=== PATIENT | male | born 1935 | race Caucasian/White ===

== ENCOUNTER 2016-11-11 18:17 | Inpatient (IN) | payer OTHER ==
[~2016-11-11] VITALS: Ht 172.7 cm; Wt 69.9 kg
[~2016-11-11 18:17] MED LIST: BACITRACIN28.4 GM TOP; ELIQUIS2.5 M1 PO; FINASTERIDE5 M1 PO; FUROSEMIDE20 M1 PO; GLIMEPIRIDE4 M1 PO; HYDRALAZINE HCL25 M1 PO; IRON325 M3 PO; METOPROLOL TART25 M1 PO; PRAVASTATIN SOD40 M2 PO; RESTASIS1 EACH OPH; SENNA8.6 M3 PO; SODIUM BICARBO650 M1 PO; SPS 15 GM/15 GM/60 M PO; TRAMADOL HCL50 M1 PO; TRAVATAN Z5 ML OPH; TYLENOL325 M1 PO
--- NOTE | 2016-11-11 18:29 | NUR ---
PT WAS REFERED TO ED BY DR FLORES SECONDARY TO ANEMIA AND POSSIBLE BLOOD TRANSFUSION. HX OF THE SAME IN THE PAST.
--- NOTE | 2016-11-11 18:45 | ED GENERAL ADULT ---
History of Present Illness General Chief Complaint: General Adult Stated Complaint: SIB DR FLORES FOR BLOOD TRANSFUSION Source: patient, family, old records Exam Limitations: no limitations Vital Signs & Intake/Output Vital Signs & Intake/Output Vital Signs Date Time Temp Pulse Resp B/P Pulse O2 O2 Flow FiO2 Ox Delivery Rate 11/11 2209 98.2 81 22 180/83 98 11/11 2053 98.0 78 22 180/83 98 Room Air 11/11 1830 97.6 76 18 187/73 97 Room Air Allergies Coded Allergies: aspirin ("I HAVE TOO MUCH ACID IN ME" 08/26/16) Triage Note: PT WAS REFERED TO ED BY DR FLORES SECONDARY TO ANEMIA AND POSSIBLE BLOOD TRANSFUSION. HX OF THE SAME IN THE PAST. Triage Nurses Notes Reviewed? yes HPI: Patient is an 81-year-old male sent in by his primary care doctor for evaluation of low blood counts. Patient was seen by his primary doctor today, had outpatient blood work which showed low blood counts. Patient reports that he had been on Coumadin and then Eliquis but was having frequent nosebleeds, has been off anticoagulants for approximately 3 weeks. Patient takes 81 mg of aspirin daily. Has not had an endoscopy or colonoscopy for several years Patient's last nosebleed was one week ago. Black stools for the past 3 weeks. Today patient has been having intermittent lightheadedness and shortness of breath. Patient denies abdominal pain, chest pain, bright red blood per rectum, any other unusual bleeding. (LESLEY SOLIS) Reconcile Medications Aspirin (Ecotrin*) 81 MG TABLET. 1 TAB PO DAILY HEART HEALTH (Reported) Cyclosporine (Restasis) 0.05 % DROPERETTE 1 GTT OPH BID EYE (Reported) Ferrous Sulfate (IRON) 325 MG (65 MG IRON) TABLET 1 TAB PO BID Anemia Finasteride 5 MG TABLET 1 TAB PO DAILY PROSTATE (Reported) Furosemide 20 MG TABLET 1 TAB PO DAILY edema (Reported) Glimepiride 4 MG TABLET 0.5 TAB PO DAILY DIABETES (Reported) Hydralazine HCl 25 MG TABLET 1 TAB PO TID HEART (Reported) Metoprolol Tartrate 25 MG TABLET 1 TAB PO BID HEART (Reported) Pravastatin Sodium 40 MG TABLET 1 TAB PO QPM CHOLESTEROL (Reported) Sennosides (Senna) 8.6 MG TABLET 2 TAB PO DAILY PRN Constipation Sodium Bicarbonate 650 MG TABLET 1 TAB PO BID SUPPLEMENT (Reported) Sodium Polystyrene Sulfon/Sorb (Sps 15 Gm/60 Ml Suspension) 15 GRAM-20 GRAM/60 ML ORAL.SUSP 60 ML PO MoTh Hyperkalemia Please take this medication twice a week. Once on Friday and Once on . Tramadol HCl 50 MG TABLET 1 TAB PO BID PAIN (Reported) Travoprost (Travatan Z) 0.004 % DROPS 1 GTT OPH QPM EYE (Reported) (ELISEO PRIETO,SIERRA) Past History Travel History Traveled to [place] past 21 day No Medical History Any Pertinent Medical History? 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 No (LESLEY SOLIS) Review of Systems Review of Systems Constitutional: Reports: weakness. Denies: chills, fever. EENTM: Reports: no symptoms. Respiratory: Reports: short of breath. Denies: cough. Cardiovascular: Denies: chest pain, syncope. GI: Reports: melena. Denies: abdominal pain. Genitourinary: Reports: no symptoms. Musculoskeletal: Reports: no symptoms. Skin: Reports: no symptoms. Neurological/Psychological: Reports: no symptoms. Hematologic/Endocrine: Reports: see HPI. Immunologic/Allergic: Reports: no symptoms. (LESLEY SOLIS) Physical Exam Physical Exam General Appearance: well developed/nourished, alert, awake Head: atraumatic, normal appearance Eyes: Bilateral: normal appearance. Ears, Nose, Throat: hearing grossly normal Neck: normal inspection, supple, full range of motion Respiratory: normal breath sounds, chest non-tender, no respiratory distress, lungs clear Cardiovascular: regular rate and rhythm, systolic murmur 4 out of 6 Gastrointestinal: normal bowel sounds, soft, non-tender Rectal: dark brown stool, Hemoccult-positive Back: normal inspection, normal range of motion Extremities: normal inspection, normal capillary refill, normal range of motion, no edema Neurologic/Psych: awake, alert, oriented x 3 Skin: pale, intact Lymphatic: no anterior cervical francesca Core Measures ACS in differential dx? Yes ASA ordered for poss ACS? No-d/t bleeding/risk of CVA/TIA Diagnosis: No Severe Sepsis Present: No Septic Shock Present: No (PEE GARRIDO,LESLEY) Progress Differential Diagnoses I considered the following diagnoses in my evaluation of the patient: Symptomatic anemia, GI bleed, anemia secondary to epistaxis, malignancy, electrolyte abnormality Plan of Care: Orders Procedure Date/time Status Nothing by Mouth 11/12 B Active PROTHROMBIN TIME 11/12 06 Active CBC WITHOUT DIFFERENTIAL 11/12 06 Active Code Status 11/11 220 Active Pathway - chart 11/11 2205 Active Code Status 11/11 2205 Complete BLOOD PRODUCT PICKUP 11/11 2100 Active Patient Data 11/11 2058 Active Admit to inpatient 11/11 2057 Active Vital Signs 11/11 205 Active Code Status 11/11 205 Complete URINALYSIS 11/11 204 Complete Intake & Output 11/11 2043 Active MISTAKE 11/11 1922 Active Telemetry/Supervisor [employer] 11/11 1922 Active LEUKOCYTE POOR (PACKED CELLS) 11/11 1908 Active PROTHROMBIN TIME 11/11 1859 Complete Add-on Test (ER Only) 11/11 1851 Active EKG 11/11 1851 Active TROPONIN LEVEL 11/11 1841 Complete COMPREHENSIVE METABOLIC PANEL 11/11 1830 Complete CBC WITHOUT DIFFERENTIAL 11/11 1830 Complete TYPE & SCREEN (NOT X-MATCH) 11/11 1830 Active Vital Signs 11/11 UNK Active Hemoccult 11/11 UNK Active FingerStick- Glucose 11/11 UNK Active Current Medications Sig/Magaly Start time Last Medication Dose Stop Time Status Admin Latanoprost 1 GTT AT BEDTIME 11/12 2200 UNVr (Xalatan) Pravastatin Sodium 40 MG 1700 11/12 1700 UNVr (Pravachol) Ferrous Sulfate 325 MG BID 11/12 1000 UNVr (Feosol) Finasteride 5 MG DAILY 11/12 1000 UNVr (Proscar) Hydralazine HCl 25 MG TID 11/12 1000 UNVr (Apresoline) Metoprolol Tartrate 25 MG BID 11/12 1000 UNVr (Lopressor) Pantoprazole Sodium 40 MG DAILY 11/12 1000 UNVr (Protonix) Tramadol HCl 50 MG BID 11/12 1000 UNVr (Ultram) Insulin Human Regular 0 Q6 11/11 235 UNVr (Novolin R Inj (Npo Patient)) Insulin Human Regular 0 Q6 11/11 235 UNVr (Novolin R Inj (Npo Patient)) Acetaminophen 650 MG Q6P PRN 11/11 2214 UNVr (Tylenol) Sodium Chloride 1,000 ML .[id number] 11/11 2214 UNVr (Normal Saline 0.9%) Laboratory Tests 11/11/162049: Urine Color YEL, Urine Clarity CLEAR, Urine pH 6.5, Ur Specific [place] 1.015, Urine Protein 30 H, Urine Ketones NEG, Urine Nitrite NEG, Urine Bilirubin NEG, Urine Urobilinogen 0.2, Ur Leukocyte Esterase NEG, Ur Microscopic SEDIMENT EXAMINED, Urine RBC RARE, Urine WBC RARE, Urine Hemoglobin TRACE-INTACT H, Urine Glucose NEG 11/11/161951: PT 11.8, INR 1.13 11/11/16 1841: Anion Gap 13, Estimated GFR 16 L, BUN/Creatinine Ratio 16.8, Glucose 150 H, Calcium 9.6, Total Bilirubin 0.5, AST 28, ALT 37, Alkaline Phosphatase 77, Troponin I 0.10, Total Protein 6.5, Albumin 3.8, Globulin 2.7, Albumin/Globulin Ratio 1.4, CBC w Diff NO MAN DIFF REQ, RBC 2.39 L, MCV 83.2, MCH 26.7 L, RDW 24.7 H, MPV 7.3 L, Gran % 73.2, Lymphocytes % 15.9 L, Monocytes % 8.9, Eosinophils % 1.5, Basophils % 0.5, Absolute Granulocytes 4.4, Absolute Lymphocytes 0.9 L, Absolute Monocytes 0.5, Absolute Eosinophils 0.1, Absolute Basophils 0, PUBS MCHC 32.1 L Patient provided written consent for blood transfusion. 11/11/2016 7:32:37 PM: Discussed with Dr. Layne: Can give a dose of Protonix, make patient nothing by mouth after midnight for likely upper endoscopy tomorrow. Results of labs discussed with patient. Patient resting comfortably on reevaluation. Discussed with Dr. Conner: will admit patient. (LESLEY SOLIS) Initial ED EKG: normal sinus rhythm 80 beats per minute with first-degree AV block, right bundle branch block, no acute ST/T-wave changes compared to previous EKG Prior EKG: unchanged (LESLEY SOLIS) Departure Departure Disposition: STILL A PATIENT Condition: Stable Clinical Impression Primary Impression: Symptomatic anemia Secondary Impressions: [id number] kidney injury, Hyperkalemia Referrals: CECIL FLORES MD (PCP/Family) Departure Forms: Customer Survey General Discharge Information Admission Note Spoke With: LAZARO PRIETO,ANTELMO Documentation of Exam: Documentation of any treatments & extenuating circumstances including Concerns Regarding Discharge (functional status, medication knowledge or non-compliance, living conditions, etc.) that warrant an admission rather than observation: Blood transfusion, GI consultation, serial labs, consider nephrology consultation, endoscopy (LESLEY SOLIS) PA/[employer] Co-Sign Statement Statement: ED Attending supervision documentation- [X] I saw and evaluated the patient. I have also reviewed all the pertinent lab results and diagnostic results. I agree with the findings and the plan of care as documented in the PA's/[employer]'s documentation. [X] I have reviewed the ED Record and agree with the PA's/[employer]'s documentation. [] Additions or exceptions (if any) to the PAs/[employer]'s note and plan are summarized below: [] (ELISEO PRIETO,SIERRA) Critical Care Note Critical Care Note Critical Care Time: 30-74 min (LESLEY SOLIS)
[2016-11-11 18:52] LABS: ABSOLUTE BASOPHIL COUNT 0 /CUMM (0.0-0.2); ABSOLUTE EOSINOPHIL COUNT 0.1 /CUMM (0.0-0.7); ABSOLUTE GRANULOCYTE CT 4.4 /CUMM (1.4-6.5); ABSOLUTE LYMPH COUNT 0.9 /CUMM (1.2-3.4); ABSOLUTE MONOCYTE COUNT 0.5 /CUMM (0.10-0.60); WHITE BLOOD CELL COUNT 5.9 /CUMM (4.8-10.8)
[2016-11-11 18:59] LABS: BASOPHIL % 0.5 % (0.0-2.0); EOSINOPHIL % 1.5 % (0-5); GRANULOCYTE % 73.2 % (42.2-75.2); MEAN CORPUSCULAR HGB 26.7 PG (27.0-31.0); MEAN CORPUSCULAR HGB CONC 32.1 G/DL (33.0-37.0); MEAN CORPUSCULAR VOLUME 83.2 FL (80.0-94.0); MEAN PLATELET VOLUME 7.3 FL (7.4-10.4); PLATELET COUNT 286 /CUMM (130-400); RBC DISTRIBUTION WIDTH 24.7 % (11.5-14.5); RED BLOOD CELL CT 2.39 /CUMM (4.70-6.10)
[2016-11-11 19:05] LABS: HEMATOCRIT 19.8 % (42-52)
--- NOTE | 2016-11-11 19:11 | NUR ---
CRITICAL TEST RESULTS [id number] SHIRA GRANT 81 M TESTS AND RESULTS: h/h 6.4/19.8 Results received and read back by: DANICA RIGGS Results received date and time: 11/11/161911 The following provider was notified of the results, and read the results back: ravinder cesar Notified date and time: 11/11/16 at 1912
--- NOTE | 2016-11-11 20:07 | NUR ---
DIFF STICK, PT IS HEME + FROM BELOW REPORTS TO THIS RN THAT THE LAST TIME HE WAS HERE HIS k+ WAS HIGH, AND HE NEEDED ALL THESE INTERVENTIONS.
[2016-11-11 20:12] LABS: PT 11.8 SEC (9.4-12.5)
--- NOTE | 2016-11-11 20:42 | NUR ---
IV ESTABLISHED, D 50 OBTAINED FROM PHARMACY, UP TO VOID STEADY ON FEET ONCE STANDING. IVF HUNG., WILL VITAL THEN ORDER BLOOD.
--- NOTE | 2016-11-11 20:45 | NUR ---
NO OVERT BLEEDING NOTED NO DIZZYNESS WITH STANDING CONSENT OBTAINED. VSS. PT WANTS TO KEEP ON SHOES SO WHEN NEEDING TO VOID CAN STAND
--- NOTE | 2016-11-11 22:02 | NUR ---
HOUSESTAFF AT BEDSIDE.
[2016-11-11] MEDS ORDERED: ASPIRIN EC81 M1 PO (22:22)
[2016-11-11 22:55] VITALS: BP 200/90
--- NOTE | 2016-11-11 23:31 | History & Physical ---
ALEXANDRO PRIETO,[facility] 11/11/16 2329: General Information and HPI MD Statement: I have seen and personally examined SHIRA GRANT and documented this H&P. The patient is a 81 year old M who presented with a patient stated chief complaint of asymptomatic anemia. 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 Patient reports a history of epistaxis (evaluated by ENT) with the last episode of epistaxis being about 1-1/2 weeks ago. Patient states that prior to his low H&H values obtained yesterday by his PCP, he has noticed that in the past few days, he has been experiencing shortness of breath, some lightheadedness/mild dizziness, and also a three-week history of what he describes as dark stools. He does deny any chest pain, palpitation, sycnope, worsening orthopnea,ematemesis,hematuria, or abdominal pain. Patient reports having had multiple age-appropriate screening colonoscopies which she states was unremarkable and due to his age, no longer deemed to be necessary. Of note, patient has stopped taking apixaban or warfarin in the setting of episodes of epistaxis with low hemoglobin and hematocrit requiring transfusions. Patient reports that he is currently on aspirin therapy. Allergies/Medications Allergies: Coded Allergies: aspirin ("I HAVE TOO MUCH ACID IN ME" 08/26/16) Home Med list Aspirin (Ecotrin*) 81 MG TABLET.DR 1 TAB PO DAILY HEART HEALTH (Reported) Cyclosporine (Restasis) 0.05 % DROPERETTE 1 GTT OPH BID EYE (Reported) Ferrous Sulfate (IRON) 325 MG (65 MG IRON) TABLET 1 TAB PO BID Anemia Finasteride 5 MG TABLET 1 TAB PO DAILY PROSTATE (Reported) Furosemide 20 MG TABLET 1 TAB PO DAILY edema (Reported) Glimepiride 4 MG TABLET 0.5 TAB PO DAILY DIABETES (Reported) Hydralazine HCl 25 MG TABLET 1 TAB PO TID HEART (Reported) Metoprolol Tartrate 25 MG TABLET 1 TAB PO BID HEART (Reported) Pravastatin Sodium 40 MG TABLET 1 TAB PO QPM CHOLESTEROL (Reported) Sennosides (Senna) 8.6 MG TABLET 2 TAB PO DAILY PRN Constipation Sodium Bicarbonate 650 MG TABLET 1 TAB PO BID SUPPLEMENT (Reported) Sodium Polystyrene Sulfon/Sorb (Sps 15 Gm/60 Ml Suspension) 15 GRAM-20 GRAM/60 ML ORAL.SUSP 60 ML PO MoTh Hyperkalemia Please take this medication twice a week. Once on Friday and Once on . 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 Home Who Do You Live With? self Services at Home: None Primary Language: Khmer Smoking Status: Never Smoked Functional Ability ADLs Independent: dressing, eating, toileting, bathing. Ambulation: cane IADLs Independent: shopping, housework, finances, food prep, telephone. Needs Assist: transportation, medication admin. Review of Systems Review of Systems Constitutional: Denies: chills, diaphoresis, unexplained weight loss. EENTM: Denies: blurred vision, double vision. Cardiovascular: Denies: palpitations, syncope. Respiratory: Reports: short of breath. Denies: hemoptysis, orthopnea, wheezing. GI: Reports: melena. Denies: abdominal pain, vomiting. Genitourinary: Denies: dysuria, frequency, hematuria. Musculoskeletal: Denies: joint pain, joint swelling. Skin: Denies: erythema, jaundice. Neurological/Psychological: Denies: confusion, depressed, dementia. Hematologic/Endocrine: Reports: bleeding. Immunologic/Allergic: Reports: no symptoms. Exam & Diagnostic Data Last 24 Hrs of Vital Signs/I&O Vital Signs Date Time Temp Pulse Resp B/P Pulse O2 O2 Flow FiO2 Ox Delivery Rate 11/12 0004 200/90 11/12 0003 200/90 11/11 2255 98.0 86 20 200/90 97 Room Air 11/11 2210 98.2 81 22 180/83 98 11/11 2054 98.0 78 22 180/83 98 Room Air 11/11 1830 97.6 76 18 187/73 97 Room Air Intake & Output 11/12 0800 11/12 0000 11/11 1600 Intake Total Output Total 250 300 Balance -250 -300 Output, Urine 250 300 Patient 69.853 kg Weight Physical Exam General Appearance Alert, Oriented X3, Cooperative Skin No Breakdown HEENT Atraumatic, PERRLA, EOMI, dry mucos membrane Neck Supple, No JVD Lymphatic Cervical nl Cardiovascular Regular Rate, Normal S1, Normal S2 Lungs Clear to Auscultation, Normal Air Movement Abdomen Normal Bowel Sounds, Soft, No Tenderness Neurological Normal Speech, Normal Tone, Sensation Intact Extremities No Tenderness/Swelling, pitting +2 Vascular Normal Pulses Assessment/Plan Assessment: This is a 80-year-old male with a recent history of epistaxis, past medical history of CAD status post CABG, CKD stage III, and use of aspirin therapy is presenting with symptomatic anemia. Patient is also found to hyperkalemia. Assessment and plan #Symptomatic acute on chronic anemia Patient presenting with symptoms of shortness of breath, lightheadedness and dizziness, and possibly black tarry stool and with hemoglobin levels value of 6.1 and hematocrit of 19.8. Possible etiology of patient's anemia includes recurrent history of epistaxis, However, the patient hasn't had an episode since about 1 and 1/2 weeks ago. Patient complains of blood tarry stool in the setting of aspirin use is concerning for GI etiology such as an ulcer. Patient history of sick daily also be superimposing and worsening his anemia. Plan * Will keep patient nothing by mouth * Will continue with 2 units of PRBC * Will trend CBC at 6am s/p transfusion * Will monitor for any acute bleeding * Will await GI consult in the morning #Hyperkalemia Most likely secondary to patient's chronic kidney disease. Patient is not on any medication that creases risk of hyperkalemia. No acute EKG changes noted. Plan * Patient already status post Kayexalate * Will trend BEP 6 am for K+ levels #Acute on chronic kidney injury Patient creatinine baseline averages around 3.3. BUN/creatinine ratio does not depict a prerenal etiology. Plan * Gentle hydration NS 75 mls per hour * Will trend kidney function * Will avoid nephrotoxic agents #History of CAD * Will obtain serial troponins and EKG to rule out ACS in the setting of symptomatic anemia * Will continue home meds with the exception of aspirin, will defer to cardiology and GI on when to restart #History of diabetes * NovoLog sliding scale and Levemir As Ranked By This Provider Problem List: 1. [id number] kidney injury 2. Hyperkalemia 3. Symptomatic anemia Core Measures/Miscellaneous Acute Coronary Syndrome ACS Diagnosis: No Cerebrovascular Accident CVA/TIA Diagnosis: No Congestive Heart Failure CHF Diagnosis: No Venous Thromboembolism VTE Risk Factors: Acute medical illness, Age > 40 VTE Prophylaxis Ordered Inpt: Mechanical (ALPS/TEDS) No Mech VTE prophylaxis d/t: No contraindications No VTE Pharm Prophylaxis d/t: Medical contraindication (LOW H&H and hx of bleeding) VTE Diagnosis: No VTE Type: NONE VTE Confirmed by (Test): NONE Severe Sepsis Severe Sepsis Present: No Septic Shock Septic Shock Present: No Miscellaneous Documentation Attending Case Discussed With: CARL WILLIS [facility] Primary Care Physician: CECIL FLORES MD Patient sees these Specialists research associate professor Level of Patient Care: General Medicine OMI PRIETONILDA 11/12/16 0525: Resident Review Statement Resident Statement: examined this patient, discussed with cad intern, agreed with cad intern, reviewed EMR data (avail), reviewed images, amended to note Other Findings: This is 81-year-old male with past medical history of paroxysmal A. fib status post pacemaker placement currently off anticoagulation for past 3 months due to anemia, see Blanca stage III - IV secondary to hypertensive nephrosclerosis, CAD status post three-vessel CABG, hypertension, type 2 diabetes was sent in by his primary care physician after routine blood workup found to have low H&H. Patient has been having frequent nosebleeds and was evaluated by ENT. His nose bleed stopped 3 weeks prior to admission after his anticoagulation stopped and started on aspirin. For past few days patient has been having intermittent lightheadedness and shortness of breath and he also reports having dark stools for past few days. He denied any chest pain, dizziness, abdominal pain, nausea, vomiting, and bright red blood per rectum. His vitals on admission were T 98, HR 76, RR 18, BP 187/73, O2 sat 97% on room air. On physical exam patient is alert oriented 3 in no acute distress, HEENT PERRLA EOMI, neck supple, heart S1-S2 normal with systolic murmur, lungs clear on auscultation, abdomen soft nontender nondistended with preserved bowel sounds, no peripheral edema, no focal gross neuro deficit. Labs revealed microcytic anemia with H&H 6.4/19.8 (baseline H&H 8.8/27 in 2015), BUN/creatinine 62/37 (baseline 34/3.2 in 09/2016), troponin 0.10--> 0.12, INR 1.13 UA noted having trace hemoglobin EKG revealed normal sinus rhythm at rate of 80 with previously noted RBBB and first-degree AV block, QTC 480 Assessment: This is 81 years old male with past medical history of paroxysmal A. fib status post pacemaker placement currently not on anticoagulation due to anemia, see Blanca stage III, type 2 diabetes, CAD status post three-vessel CABG, recent history of nosebleed presented from home with chief complaint of lightheadedness and shortness of breath found to have significant anemia on routine workup. Patient also reported 3 weeks history of on and off dark BM and recently started on aspirin. 1. Anemia secondary to GI bleed Also there is a component of anemia secondary to chronic kidney disease - Admit to general medicine floor - Keep nothing by mouth for possible EGD - Hold aspirin and anticoagulation - Start IV PPI - GI consult in a.m. 2. CAD - Continue Metoprolol 25 twice a day - Held aspirin due to concern of upper GI bleed - Cardiology consult in a.m. for evaluation of need for antiplatelet or anticoagulation medication considering patient's history of CAD and paroxysmal A. fib. - Continue statin 3. Hypertension - Continue metoprolol and hydralazine 4. Type 2 diabetes - Continue Novolin nothing by mouth sliding scale - Hold oral hypoglycemic agent 5. Stage IIIc CK D Avoid nephrotoxic agent Gentle IV hydration Monitor renal function 6. Hyperkalemia in setting of acute on chronic kidney disease - Patient received calcium gluconate and insulin with dextrose in ER - Repeat potassium in a.m. - No EKG changes noted - If progression remains high consider dose of Kayexalate 7. DVT prophylaxis Mechanical 8. DNR/DNI LAZARO PRIETO, [facility] 11/12/16 0640: Attending MD Review Statement Attending Statement Attending MD Statement: examined this patient, discuss w/resident/PA/TIP LENGTH CHECKER, agreed w/resident/PA/TIP LENGTH CHECKER Attending Assessment/Plan: 81 yo M with h/o CAD s/p CABG, CKD stage 3-4, P Afib and SSS s/p PPM previously on AC that was discontinued due to recurrent nosebleeds and he was placed on aspirin about 3 weeks ago, is sent by PCP for evaluation of anemia. Patient reports last episode of nosebleed on Nov 03. He has 3-week h/o dark/ black stooks, lightheadedness and exertional dyspnea. No CP or palpitations. Denies use of NSAIDs other than aspirin. Last Colonoscopy was many yrs ago and unremarkable per patient. VSS, except for hypertension. Labs: H/H 8.8/27 (Sep 2016) --> 6.4/19.8 (today), K 5.9, bicarb 20, BUN 62, creat 3.7 (baseline 3.1-3.2), trop 0.10 --> 0.12, UA neg. EKG: SR, RBBB (old). Rectal exam: dark brown stool heme positive. 1. Acute blood loss and symptomatic anemia likely in the setting of aspirin use. NPO, transfuse to keep Hb > 8.0, gentle hydration, hold off aspirin and NSAIDs, GI consult, IV PPI, EGD in AM. Check iron studies, TSH, free T4, B12 and folic acid. 2. Positive troponin likely demand ischemia. Serial EKG and troponin, Echo and cardio consult. 3. Orthostatic hypotension. IV hydration, recheck orthostats in AM. 4. HTN, CAD. Ct. Metoprolol, hydralazine. 5. Hyperkalemia in the setting of CKD. DVT ppx Alps. DNR/I.
[2016-11-12] VITALS (7 sets, daily range): BP systolic 150–180; BP diastolic 62–84
--- NOTE | 2016-11-12 05:06 | NUR ---
PT RECIEVED TWO UNITS OF BLOOD FINISHED AT 0430. BP 180/80 MD AWARE. +TROP, STAT TRANSFER TO TELE. AWAITING BED PLACEMENT.
--- NOTE | 2016-11-12 06:15 | NUR ---
PT TRANSFERED TO TELE AT 0605. REPORT GIVEN, BELONGINGS AND MEDS WENT WITH PT.
--- NOTE | 2016-11-12 06:39 | Admission Certification ---
Admission Certification Certification Statement - As attending physician, I certify that at the time of - admission, based on clinical presentation, severity of - symptoms, need for further diagnostic testing and - therapeutic interventions, and risk of adverse outcomes - without in-hospital treatment, in my clinical assessment, - this patient requires an acute hospital stay for a minimum - of two nights or longer. I have also considered psychsocial - factors such as support system, advanced age, financial - issues, cognitive issues, and failed out-patient treatments, - past re-admission history, safety of patient, and lack of - compliance as applicable. Specific rationale supporting this admission is: Acute blood loss anemia, symptomatic anemia. Orthostatic hypotension.
--- NOTE | 2016-11-12 07:29 | PN- Housestaff ---
SELVIN PRIETO,[facility] 11/12/16 0729: Subjective Follow-up For: Symptomatic acute on chronic anemia Hyperkalemia Diabetes Subjective: seen and examined this morning. He was lying comfortably in bed in no acute distress. He is to go for endoscopy today, currently nothing by mouth for the procedure. Afebrile, the vitals remained within normal limits. No other complaints Review of Systems Constitutional: Reports: see HPI. Objective Last 24 Hrs of Vital Signs/I&O Vital Signs Date Time Temp Pulse Resp B/P Pulse O2 O2 Flow FiO2 Ox Delivery Rate 11/12 1326 160/70 11/12 0944 166/74 11/12 0800 98.2 64 20 170/80 93 Room Air 11/12 0642 64 174/84 11/12 0430 98.4 67 20 180/80 11/12 0205 98.3 63 20 160/78 11/12 0150 97.8 62 20 150/74 11/12 0105 97.7 62 20 158/72 11/12 0004 200/90 11/12 0003 200/90 11/11 2255 98.0 86 20 200/90 97 Room Air 11/11 2210 98.2 81 22 180/83 98 11/11 2054 98.0 78 22 180/83 98 Room Air 11/11 1830 97.6 76 18 187/73 97 Room Air Intake & Output 11/12 1600 11/12 0800 11/12 0000 Intake Total 1200 700 Output Total 700 250 300 Balance 500 450 -300 Intake, Blood 600 Product Intake, IV 800 100 Intake, Oral 400 Number 2 Bowel Movements Output, Urine 700 250 300 Patient 69.853 kg Weight Physical Exam General Appearance: Alert, Oriented X3, Cooperative, No Acute Distress Cardiovascular: Regular Rate, Normal S1, Normal S2, No Murmurs Lungs: Clear to Auscultation, Normal Air Movement Abdomen: Normal Bowel Sounds, Soft, No Tenderness Extremities: No Clubbing, No Cyanosis, No Edema Current Medications: Current Medications Sig/Magaly Start time Last Medication Dose Route Stop Time Status Admin Acetaminophen 650 MG .STK-MED ONE 11/12 0000 DC PO 11/12 0001 Acetaminophen 650 MG Q6P PRN 11/11 2215 AC 11/12 PO 0003 Calcium Gluconate 0 .STK-MED ONE 11/11 2015 DC IV Calcium Gluconate 1 GM ONCE ONE 11/11 194 DC 11/11 Sodium Chloride 100 ML IV 11/11 2043 204 Chlorhexidine 1 GM .STK-MED ONE 11/12 1306 DC Gluconate TOP 11/12 1307 Dextrose 25 GM ONCE ONE 11/11 1945 DC 11/11 IV 11/11 1945 204 Ferrous Sulfate 325 MG BID 11/12 1000 AC 11/12 PO 0944 Finasteride 5 MG DAILY 11/12 1000 AC 11/12 PO 0944 Hydralazine HCl 25 MG Q8 11/12 0600 AC 11/12 PO 1326 Hydralazine HCl 25 MG ONCE ONE 11/11 2315 DC 11/12 PO 11/11 2316 0003 Insulin Aspart 0 TIDAC 11/12 1700 UNVr SC Insulin Human Regular 0 Q6 11/11 2359 DC 11/12 SC 0126 Insulin Human Regular 0 Q6 11/11 2359 CAN SC Insulin Human Regular 10 UNITS ONCE ONE 11/11 1945 DC 11/11 IV 11/11 1945 204 Latanoprost 1 GTT AT BEDTIME 11/12 2200 AC OPH Latanoprost 1 GTT AT BEDTIME 11/12 2200 CAN OPH Metoprolol Tartrate 25 MG BID 11/12 1000 AC 11/12 PO 0944 Metoprolol Tartrate 25 MG ONCE ONE 11/11 2315 DC 11/12 PO 11/11 2316 0004 Omeprazole 40 MG BID 11/12 2200 AC PO Pantoprazole Sodium 40 MG DAILY 11/12 1000 DC 11/12 IV 0945 Pantoprazole Sodium 0 .STK-MED ONE 11/11 2030 DC IV Pantoprazole Sodium 40 MG ONCE ONE 11/11 194 DC 11/11 IV 11/11 1945 204 Patient Medication 1 ED .STK-MED ONE 11/12 1356 DC Teaching ED 11/12 1357 Pravastatin Sodium 40 MG 1700 11/12 1700 AC PO Sodium Chloride 1,000 ML .[id number] 11/11 2215 DC 11/12 IV 0642 Sodium Chloride 1,000 ML ONCE ONE 11/11 1945 DC 11/11 IV 11/12 0344 2019 Sodium Polystyrene 60 ML ONCE ONE 11/12 0915 DC 11/12 Sulfonate PO 11/12 0916 0945 Tramadol HCl 50 MG BID 11/12 1000 AC 11/12 PO 0944 Last 24 Hrs of Lab/Dung Results Last 24 Hrs of Labs/Mics: Laboratory Tests 11/12/16 1310: Troponin I Pending 11/12/16 0600: Anion Gap 12, Estimated GFR 15 L, BUN/Creatinine Ratio 14.7, Troponin I 0.13 *H , PT Cancelled, INR Cancelled, CBC w Diff NO MAN DIFF REQ, RBC 3.12 L, MCV 83.7 , MCH 27.7, RDW 20.6 H, MPV 7.7, Gran % 67.8, Lymphocytes % 20.3 L, Monocytes % 8.4, Eosinophils % 3.1, Basophils % 0.4, Absolute Granulocytes 3.8, Absolute Lymphocytes 1.2, Absolute Monocytes 0.5, Absolute Eosinophils 0.2, Absolute Basophils 0, PUBS MCHC 33.2 11/12/16 0230: Troponin I 0.12 *H 11/11/162049: Urine Color YEL, Urine Clarity CLEAR, Urine pH 6.5, Ur Specific [place] 1.015, Urine Protein 30 H, Urine Ketones NEG, Urine Nitrite NEG, Urine Bilirubin NEG, Urine Urobilinogen 0.2, Ur Leukocyte Esterase NEG, Ur Microscopic SEDIMENT EXAMINED, Urine RBC RARE, Urine WBC RARE, Urine Hemoglobin TRACE-INTACT H, Urine Glucose NEG 11/11/16 1952: PT 11.8, INR 1.13 11/11/16 1841: Anion Gap 13, Estimated GFR 16 L, BUN/Creatinine Ratio 16.8, Glucose 150 H, Calcium 9.6, Total Bilirubin 0.5, AST 28, ALT 37, Alkaline Phosphatase 77, Troponin I 0.10, Total Protein 6.5, Albumin 3.8, Globulin 2.7, Albumin/Globulin Ratio 1.4, CBC w Diff NO MAN DIFF REQ, RBC 2.39 L, MCV 83.2, MCH 26.7 L, RDW 24.7 H, MPV 7.3 L, Gran % 73.2, Lymphocytes % 15.9 L, Monocytes % 8.9, Eosinophils % 1.5, Basophils % 0.5, Absolute Granulocytes 4.4, Absolute Lymphocytes 0.9 L, Absolute Monocytes 0.5, Absolute Eosinophils 0.1, Absolute Basophils 0, PUBS MCHC 32.1 L Assessment/Plan Assessment: This is 81 years old male with past medical history of paroxysmal A. fib status post pacemaker placement currently not on anticoagulation due to anemia, see Blanca stage III, type 2 diabetes, CAD status post three-vessel CABG, recent history of nosebleed presented from home with chief complaint of lightheadedness and shortness of breath found to have significant anemia on routine workup. Patient also reported 3 weeks history of on and off dark BM and recently started on aspirin. Upon presentation -His vitals on admission were T 98, HR 76, RR 18, BP 187/73, O2 sat 97% on room air. On physical exam patient is alert oriented 3 in no acute distress, HEENT PERRLA EOMI, neck supple, heart S1-S2 normal with systolic murmur, lungs clear on auscultation, abdomen soft nontender nondistended with preserved bowel sounds, no peripheral edema, no focal gross neuro deficit. Labs revealed microcytic anemia with H&H 6.4/19.8 (baseline H&H 8.8/27 in 2015), BUN/creatinine 62/37 (baseline 34/3.2 in 09/2016), troponin 0.10--> 0.12, INR 1.13 UA noted having trace hemoglobin EKG revealed normal sinus rhythm at rate of 80 with previously noted RBBB and first-degree AV block, QTC 480 He was admitted to telemetry floor and is currently being monitored for the following conditions: #Symptomatic acute on chronic anemia Patient presenting with symptoms of shortness of breath, lightheadedness and dizziness, and possibly black tarry stool and with hemoglobin levels value of 6.1 and hematocrit of 19.8. Possible etiology of patient's anemia includes recurrent history of epistaxis, However, the patient hasn't had an episode since about 1 and 1/2 weeks ago. Patient complains of blood tarry stool in the setting of aspirin use is concerning for GI etiology such as an ulcer. He received 2 units of packed red blood cells yesterday H&H posttransfusion 8.7 and 26.1. Patient currently nothing by mouth for endoscopy today, will monitor for any acute bleeding, GI on board for follow-up or conditions. We'll continue with GI prophylaxis with Protonix IV 40 mg daily. #Hyperkalemia Most likely secondary to patient's chronic kidney disease. Patient is not on any medication that creases risk of hyperkalemia. No acute EKG changes noted. Kayexalate was administered we'll monitor repeat labs for potassium levels #Acute on chronic kidney injury Patient creatinine baseline averages around 3.3. BUN/creatinine ratio does not depict a prerenal etiology. Currently hydrating with normal saline 75 ML's per hour, will monitor repeat labs and in the meanwhile avoid any nephrotoxic drugs. #History of CAD Likely demand ischemia, troponins 0.12 and 0.13, without any acute EKG changes, will Trend serial troponins and EKG to rule out ACS in the setting of symptomatic anemia. Aspirin on hold for now, will consult GI to be started. #History of diabetes. We'll start patient on insulin sliding scale with fingersticks TIDAC/hs along with Levemir, diabetic diet, HbA1c pending # DVT prophylaxis with Alps Patient is DNR/DNI. Problem List: 1. Hyperkalemia 2. Symptomatic anemia Pain Ratin Pain Location: none Pain Goal: Remain pain free Pain Plan: Tylenol 650 every 6 hours for mild pain Tomorrow's Labs & Rationales: CBC for posttransfusion H&H monitoring BEP for lites monitoring (potassium, creatinine) JOSE MIGUEL CARLISLE MD 11/12/16 1650: Attending MD Review Statement Attending Statement Attending MD Statement: examined this patient, discuss w/resident/PA/RIM ROLLER OPERATOR, agreed w/resident/PA/RIM ROLLER OPERATOR, reviewed EMR data (avail), discussed with nursing, amended to note Attending Assessment/Plan: The patient was seen and discussed with house staff and GI/Cardiology. Agree with the plan of care as outlined.
[2016-11-12 08:12] LABS: ABSOLUTE BASOPHIL COUNT 0 /CUMM (0.0-0.2); ABSOLUTE EOSINOPHIL COUNT 0.2 /CUMM (0.0-0.7); ABSOLUTE GRANULOCYTE CT 3.8 /CUMM (1.4-6.5); ABSOLUTE LYMPH COUNT 1.2 /CUMM (1.2-3.4); ABSOLUTE MONOCYTE COUNT 0.5 /CUMM (0.10-0.60); EOSINOPHIL % 3.1 % (0-5); MEAN PLATELET VOLUME 7.7 FL (7.4-10.4); WHITE BLOOD CELL COUNT 5.7 /CUMM (4.8-10.8)
[2016-11-12 08:28] LABS: BASOPHIL % 0.4 % (0.0-2.0); GRANULOCYTE % 67.8 % (42.2-75.2); MEAN CORPUSCULAR HGB 27.7 PG (27.0-31.0); MEAN CORPUSCULAR HGB CONC 33.2 G/DL (33.0-37.0); MEAN CORPUSCULAR VOLUME 83.7 FL (80.0-94.0); PLATELET COUNT 237 /CUMM (130-400); RBC DISTRIBUTION WIDTH 20.6 % (11.5-14.5)
[2016-11-12 08:31] LABS: HEMATOCRIT 26.1 % (42-52); RED BLOOD CELL CT 3.12 /CUMM (4.70-6.10)
--- NOTE | 2016-11-12 09:52 | NUR ---
OK TO GIVE AM MEDS WITH SIPS OF WATER PER AHAF A.
--- NOTE | 2016-11-12 11:48 | Cons- Gastroenterology ---
General Information and HPI Consulting Request Date of Consult: 11/12/16 Requested By: JOSE MIGUEL STOUT MD Reason for Consult: Notified this morning of a request to see 81-year-old male with numerous comorbidities for multifactorial anemia, questionable history of melena (brown, OB+ stool on admission), & history of epistaxis. Source of Information: patient, old records Exam Limitations: no limitations History of Present Illness: 81-year-old male with numerous comorbidities, ASHD/PPM/post CABG 2008/HTN/HLD/DM /CHF/CKD stage 3-4/DJD/hx PAF- off A/C therapy (Coumadin switched to Eliquis 2 months [facility], at which point he was put on ASA 81 mg daily), admitted 11/11/2016 with multifactorial anemia & questionable history of melena (brown, OB-negative stool in the ER), requiring transfusion, with sonya H/H 6.4/19.8, BUN/Cr 62/3.7, INR 1.13. The patient has had numerous episodes of epistaxis, most recently requiring cautery and packing over the past month. There was no overt hematemesis or BRBPR. The patient was not on NSAIDs, just Tramodol for DJD/post right THR 04/30/07. *The patient had a mild troponin bump 0.13, felt to be secondary to demand ischemia from anemia, and was cleared by Dr. Jamison, of cardiology, preoperatively. Positive family history of gastric CA (M- 76). Positive family history of liver cancer (F- 83, primary vs. met). 27/04: Combined upper endoscopy/colonoscopy to the cecum- duodenitis, mild chronic antral gastritis, H. pylori positive, moderate chronic fundic gastritis, H. pylori positive, without Ca, Z line at 40 cm, tiny hiatal hernia; moderate left sided diverticula, mild internal hemorrhoids, normal mucosa to the cecum. [ *I am not certain what H. pylori regimen the patient was treated with at that time, as the records have been purged]. The patient was sent to the [place] ER 11/11/2016 by his PMD, Dr. Smiley, arriving 6:17 p.m., for symptomatic anemia, at which point he was hypertensive, otherwise vital signs stable and afebrile. He was given IV Protonix, IV normal saline, calcium and insulin in the ER. The patient was not dizzy upon standing, although there were orthostatic changes ( albeit HTN). He did have some shortness of breath with exertion, otherwise there is no chest pain, LOC, or shortness of breath at rest. There was no gross hematuria or hemoptysis. The patient denies any history of bleeding disorders. The patient has required intermittent transfusions in the past. According to cardiology, in view of the recurrent anemia & epistaxis, the risk:benefit ratio no longer warranted anticoagulation therapy. The patient denies any GERD, odynophagia, dysphagia, nausea, vomiting, early satiety, abdominal pain, change in appetite, fevers, chills, jaundice, diarrhea, constipation, obstipation, or tenesmus. His weight is relatively stable. Baby aspirin was held on admission. The patient was not on outpatient PPI. The intermittent dark stools were for 3 weeks [facility]. *There is no true aspirin "allergy," despite what the records imply. 11/11/16: *Ferritin 13.8, B12 546, folate > 20 11/12/16: *peak troponin (to date) 0.13 11/12/16: EKG- NSR @ 62, 1st degree AVB, LAE, RBBB, post PPM. Allergies/Medications Allergies: Coded Allergies: aspirin ("I HAVE TOO MUCH ACID IN ME" 08/26/16) Home Med List: Aspirin (Ecotrin*) 81 MG TABLET.DR 1 TAB PO DAILY HEART HEALTH (Reported) Cyclosporine (Restasis) 0.05 % DROPERETTE 1 GTT OPH BID EYE (Reported) Ferrous Sulfate (IRON) 325 MG (65 MG IRON) TABLET 1 TAB PO BID Anemia Finasteride 5 MG TABLET 1 TAB PO DAILY PROSTATE (Reported) Furosemide 20 MG TABLET 1 TAB PO DAILY edema (Reported) Glimepiride 4 MG TABLET 0.5 TAB PO DAILY DIABETES (Reported) Hydralazine HCl 25 MG TABLET 1 TAB PO TID HEART (Reported) Metoprolol Tartrate 25 MG TABLET 1 TAB PO BID HEART (Reported) Pravastatin Sodium 40 MG TABLET 1 TAB PO QPM CHOLESTEROL (Reported) Sennosides (Senna) 8.6 MG TABLET 2 TAB PO DAILY PRN Constipation Sodium Bicarbonate 650 MG TABLET 1 TAB PO BID SUPPLEMENT (Reported) Sodium Polystyrene Sulfon/Sorb (Sps 15 Gm/60 Ml Suspension) 15 GRAM-20 GRAM/60 ML ORAL.SUSP 60 ML PO MoTh Hyperkalemia Please take this medication twice a week. Once on Friday and Once on . Tramadol HCl 50 MG TABLET 1 TAB PO BID PAIN (Reported) Travoprost (Travatan Z) 0.004 % DROPS 1 GTT OPH QPM EYE (Reported) Current Medications: Current Medications Sig/Magaly Start time Last Medication Dose Route Stop Time Status Admin Acetaminophen 650 MG .STK-MED ONE 11/12 0000 DC PO 11/12 0001 Acetaminophen 650 MG Q6P PRN 11/11 2215 AC 11/12 PO 0003 Calcium Gluconate 0 .STK-MED ONE 11/11 2016 DC IV Calcium Gluconate 1 GM ONCE ONE 11/11 1944 DC 11/11 Sodium Chloride 100 ML IV 11/11 Chlorhexidine 1 GM .STK-MED ONE 11/12 1306 DC Gluconate TOP 11/12 1307 Dextrose 25 GM ONCE ONE 11/11 1945 DC 11/11 IV 11/11 Ferrous Sulfate 325 MG BID 11/12 1000 AC 11/12 PO 0944 Finasteride 5 MG DAILY 11/12 1000 AC 11/12 PO 0944 Hydralazine HCl 25 MG Q8 11/12 0600 AC 11/12 PO 1326 Hydralazine HCl 25 MG ONCE ONE 11/11 2315 DC 11/12 PO 11/11 2316 0003 Insulin Human Regular 0 Q6 11/11 2359 DC 11/12 SC 0126 Insulin Human Regular 0 Q6 11/11 2359 CAN SC Insulin Human Regular 10 UNITS ONCE ONE 11/115 DC 11/11 IV 11/11 Latanoprost 1 GTT AT BEDTIME 11/120 AC OPH Latanoprost 1 GTT AT BEDTIME 11/12 2200 CAN OPH Metoprolol Tartrate 25 MG BID 11/12 1000 AC 11/12 PO 0944 Metoprolol Tartrate 25 MG ONCE ONE 11/11 2315 DC 11/12 PO 11/11 2316 0004 Omeprazole 40 MG BID 11/12 2200 AC PO Pantoprazole Sodium 40 MG DAILY 11/12 1000 DC 11/12 IV 0945 Pantoprazole Sodium 0 .STK-MED ONE 11/11 2030 DC IV Pantoprazole Sodium 40 MG ONCE ONE 11/11 1944 DC 11/11 IV 01/30 1946 2042 Patient Medication 1 ED .STK-MED ONE 11/12 1356 DC Teaching ED 11/12 1357 Pravastatin Sodium 40 MG 1700 11/12 1700 AC PO Sodium Chloride 1,000 ML .[id number] 11/11 2215 DC 11/12 IV 0642 Sodium Chloride 1,000 ML ONCE ONE 11/11 1945 DC 11/11 IV 11/12 0344 2019 Sodium Polystyrene 60 ML ONCE ONE 11/12 0915 DC 11/12 Sulfonate PO 11/12 0916 0945 Tramadol HCl 50 MG BID 11/12 1000 AC 11/12 PO 0944 Past History Travel History Traveled to [place] past 21 day No Medical History Blood Transfusion Hx: Yes Neurological: NONE EENT: epistaxis Cardiovascular: CAD, CHF, hypertension, hyperlipidemia, R CHEST PACEMAKER, PAF Respiratory: NONE Gastrointestinal: diverticulosis coli, 05/28/07: + H. pylori on gastric bxs, txd (?regimen) Hepatic: NONE Renal: benign prost hyperplasia, DECREASED KIDNEY FUNCTION CKD- STAGE 3-4 Musculoskeletal: degen joint disease, osteoarthritis, FALL 5 YRS AGO Psychiatric: NONE Endocrine: diabetes Blood Disorders: NONE (multifactorial), anemia Cancer(s): NONE MEDICAL RECORDS CODER/Reproductive: NONE Surgical History Surgical History: none (2008), CABG, hip replacement (04/30/07: Right THR), R CHEST PACEMAKER Family History Relations & Conditions If Any: MOTHER, , Age 78; Cause: Gastric cancer. Gastric cancer FATHER (Liver Ca (? primary vs. met)). , Age 86; Cause: Cancer. Psychosocial History Where Do You Live? Home Who Do You Live With? self Services at Home: None Primary Language: Tamazight Smoking Status: Never Smoked ETOH Use: denies use Illicit Drug Use: denies illicit drug use Living Will? no Power of [employer] Runners/HCP? no Other Social History: Single. Lives alone. Patient's , Kaalni- 67 in 2008 from gastric Ca. No cigarettes, drugs, or EtOH. 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 Functions independently. Uses cane. 2 children- [employer] (1 dtr in [place], [place] & 1 son in [place]). Functional Ability ADLs Independent: dressing, eating, toileting, bathing. Ambulation: cane IADLs Independent: shopping, housework, finances, food prep, telephone. Needs Assist: transportation, medication admin. Employment History Employment: Retired (semi-retired) Profession/Employer: [employer] Review of Systems Review of Systems: Full 14 point review of systems otherwise noncontributory, and as above. Review of Systems Constitutional: Denies: chills, diaphoresis, fever, malaise, weakness, unexplained weight loss. EENTM: Reports: epistaxis (recently). Denies: blurred vision, double vision, visual changes, eye pain, eye drainage, eye tearing, icterus, ear discharge, ear pain, ear redness, hearing changes, nasal congestion, nasal pain, throat pain, throat swelling, mouth pain, tooth pain. Cardiovascular: Denies: chest pain, edema, orthopena, palpitations, peripheral edema, syncope. Respiratory: Reports: short of breath. Denies: cough, hemoptysis, orthopnea, sputum production, stridor, wheezing. GI: Reports: melena (brown, OB+ on admission). Denies: abdominal pain, bloating, constipation, diarrhea, distention, bowel incontinence, nausea, bloody stool, changes in stool, vomiting, steatorrhea. Genitourinary: Reports: hesitation (BPH), nocturia (BPH). Denies: discharge, dysuria, frequency, hematuria, pain, urgency. Musculoskeletal: Reports: joint pain (DJD). Denies: back pain, gout, joint swelling, muscle pain , muscle stiffness, neck pain. Skin: Denies: cysts, change in skin color, change in hair/nails, dryness, erythema, jaundice, lesions, lymphangitis, lumps, moles, rash. Neurological/Psychological: Denies: anxiety, ataxia, cognitive dysfunction, confusion, depressed, dementia, emotional problems, headache, numbness, paresthesia, pre-existing deficit, petit mal seizures, tingling, tremors, tonic-clonic seizures, unable to move lower ext , unable to move upper ext, weakness. Hematologic/Endocrine: Reports: bleeding (hx epistaxis & int dark stool). Denies: bruising, polyuria, polydipsia. Immunologic/Allergic: Denies: splenectomy, HIV/AIDS, lymphadenopathy. All Other Systems: Reviewed and Negative Exam & Diagnostic Data Vital Signs and I&O Vital Signs Date Time Temp Pulse Resp B/P Pulse O2 O2 Flow FiO2 Ox Delivery Rate 11/12 1326 160/70 11/12 0944 166/74 11/12 0800 98.2 64 20 170/80 93 Room Air 11/12 0642 64 174/84 11/12 0430 98.4 67 20 180/80 11/12 0205 98.3 63 20 160/78 11/12 0150 97.8 62 20 150/74 11/12 0105 97.7 62 20 158/72 11/12 0004 200/90 11/12 0003 200/90 11/11 2255 98.0 86 20 200/90 97 Room Air 11/11 2210 98.2 81 22 180/83 98 11/11 2054 98.0 78 22 180/83 98 Room Air 11/11 1830 97.6 76 18 187/73 97 Room Air Intake & Output 11/12 1600 11/12 0400 11/11 1600 11/11 0400 11/10 1600 11/10 0400 Intake Total 700 Output Total 550 Balance 700 -550 Intake, Blood 600 Product Intake, IV 100 Output, Urine 550 Patient 154 lb Weight Physical Exam: Well-developed, well-nourished, elderly male in no apparent distress. Sclera anicteric. Conjunctiva less pale after transfusion. Oropharynx clear. No oral thrush. No aphthous ulcers. There is no adenopathy, thyromegaly, JVD, or HJR. No peripheral stigmata of inflammatory bowel disease or chronic liver disease on exam. No spiders on the anterior chest wall. No CVA tenderness. Lungs: clear to A&P. Heart exam: (currently in NSR)-regular rate rhythm, S1 S2, soft I/ systolic murmur. Abdominal exam: normal bowel sounds, soft belly, nontender, without guarding or rebound. No mass. No organomegaly. No fluid shift. No pulsatile mass. Repeat digital rectal exam: deferred (brown, OB+ stool on admission in ER 11/11/16). Extremities: without cyanosis or clubbing. Trace pedal edema B/L. Post right THR. No palpable cords. Distal pulses 2+ bilaterally. DTRs 2+ bilaterally. Left handed. CN II-XII intact. Alert and oriented x 3. Results Pertinent Lab Results: Laboratory Tests 11/12 11/12 11/12 1310 0600 0230 Chemistry Sodium (137 - 145 mmol/L) 142 Potassium (3.5 - 5.1 mmol/L) 5.7 H Chloride (98 - 107 mmol/L) 111 H Carbon Dioxide (22 - 30 mmol/L) 19 L Anion Gap (5 - 16) 12 BUN (9 - 20 mg/dL) 56 H Creatinine (0.7 - 1.2 mg/dL) 3.8 H Estimated GFR (>60 ml/min) 15 L BUN/Creatinine Ratio (7 - 25 %) 14.7 Troponin I (<0.11 ng/ml) Pending 0.13 *H 0.12 *H Coagulation PT Cancelled INR Cancelled Hematology CBC w Diff NO MAN DIFF REQ WBC (4.8 - 10.8 /CUMM) 5.7 RBC (4.70 - 6.10 /CUMM) 3.12 L Hgb (14.0 - 18.0 G/DL) 8.7 L Hct (42 - 52 %) 26.1 L MCV (80.0 - 94.0 FL) 83.7 MCH (27.0 - 31.0 PG) 27.7 RDW (11.5 - 14.5 %) 20.6 H Plt Count (130 - 400 /CUMM) 237 MPV (7.4 - 10.4 FL) 7.7 Gran % (42.2 - 75.2 %) 67.8 Lymphocytes % (20.5 - 51.1 %) 20.3 L Monocytes % (1.7 - 9.3 %) 8.4 Eosinophils % (0 - 5 %) 3.1 Basophils % (0.0 - 2.0 %) 0.4 Absolute Granulocytes (1.4 - 6.5 /CUMM) 3.8 Absolute Lymphocytes (1.2 - 3.4 /CUMM) 1.2 Absolute Monocytes (0.10 - 0.60 /CUMM) 0.5 Absolute Eosinophils (0.0 - 0.7 /CUMM) 0.2 Absolute Basophils (0.0 - 0.2 /CUMM) 0 PUBS MCHC (33.0 - 37.0 G/DL) 33.2 11/11 Coagulation PT (9.4 - 12.5 SEC) 11.8 INR (0.90 - 1.17) 1.13 Urines Urine Color (YEL,AMB,STR) YEL Urine Clarity (CLEAR) CLEAR Urine pH (5.0 - 8.0) 6.5 Ur Specific [place] (1.001 - 1.035) 1.015 Urine Protein (NEG,<30 MG/DL) 30 H Urine Ketones (NEG) NEG Urine Nitrite (NEG) NEG Urine Bilirubin (NEG) NEG Urine Urobilinogen (0.1 - 1.0 EU/dl) 0.2 Ur Leukocyte Esterase (NEG) NEG Ur Microscopic SEDIMENT EXAMINED Urine RBC (0 - 5 /HPF) RARE Urine WBC (0 - 2 /HPF) RARE Urine Hemoglobin (NEG) TRACE-INTACT H Urine Glucose (N MG/DL) NEG 11/11 1841 Chemistry Sodium (137 - 145 mmol/L) 140 Potassium (3.5 - 5.1 mmol/L) 5.9 H Chloride (98 - 107 mmol/L) 107 Carbon Dioxide (22 - 30 mmol/L) 20 L Anion Gap (5 - 16) 13 BUN (9 - 20 mg/dL) 62 H Creatinine (0.7 - 1.2 mg/dL) 3.7 H Estimated GFR (>60 ml/min) 16 L BUN/Creatinine Ratio (7 - 25 %) 16.8 Glucose (65 - 99 mg/dL) 150 H Calcium (8.4 - 10.2 mg/dL) 9.6 Total Bilirubin (0.2 - 1.3 mg/dL) 0.5 AST (17 - 59 U/L) 28 ALT (21 - 72 U/L) 37 Alkaline Phosphatase (< 127 U/L) 77 Troponin I (<0.11 ng/ml) 0.10 Total Protein (6.3 - 8.2 g/dL) 6.5 Albumin (3.5 - 5.0 g/dL) 3.8 Globulin (1.9 - 4.2 gm/dL) 2.7 Albumin/Globulin Ratio (1.1 - 2.2 %) 1.4 Hematology CBC w Diff NO MAN DIFF REQ WBC (4.8 - 10.8 /CUMM) 5.9 RBC (4.70 - 6.10 /CUMM) 2.39 L Hgb (14.0 - 18.0 G/DL) 6.4 *L Hct (42 - 52 %) 19.8 *L MCV (80.0 - 94.0 FL) 83.2 MCH (27.0 - 31.0 PG) 26.7 L RDW (11.5 - 14.5 %) 24.7 H Plt Count (130 - 400 /CUMM) 286 MPV (7.4 - 10.4 FL) 7.3 L Gran % (42.2 - 75.2 %) 73.2 Lymphocytes % (20.5 - 51.1 %) 15.9 L Monocytes % (1.7 - 9.3 %) 8.9 Eosinophils % (0 - 5 %) 1.5 Basophils % (0.0 - 2.0 %) 0.5 Absolute Granulocytes (1.4 - 6.5 /CUMM) 4.4 Absolute Lymphocytes (1.2 - 3.4 /CUMM) 0.9 L Absolute Monocytes (0.10 - 0.60 /CUMM) 0.5 Absolute Eosinophils (0.0 - 0.7 /CUMM) 0.1 Absolute Basophils (0.0 - 0.2 /CUMM) 0 PUBS MCHC (33.0 - 37.0 G/DL) 32.1 L Imaging/Other Studies: 11/12/16: EKG- NSR @ 62, 1st degree AVB, LAE, RBBB, post PPM. 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 The patient has had numerous episodes of epistaxis, most recently requiring cautery and packing over the past month. There was no overt hematemesis or BRBPR. The patient was not on NSAIDs, just Tramodol for DJD/post right THR 04/30/07. *The patient had a mild troponin bump 0.13, felt to be secondary to demand ischemia from anemia, and was cleared by Dr. Jamison, of cardiology, preoperatively. Positive family history of gastric CA (M- 76). Positive family history of liver cancer (F- 83, primary vs. met). 27/04: Combined upper endoscopy/colonoscopy to the cecum- duodenitis, mild chronic antral gastritis, H. pylori positive, moderate chronic fundic gastritis, H. pylori positive, without Ca, Z line at 40 cm, tiny hiatal hernia; moderate left sided diverticula, mild internal hemorrhoids, normal mucosa to the cecum. [ *I am not certain what H. pylori regimen the patient was treated with at that time, as the records have been purged]. The patient was sent to the [place] ER 11/11/2016 by his PMD, Dr. Smiley, arriving 6:17 p.m., for symptomatic anemia, at which point he was hypertensive, otherwise vital signs stable and afebrile. He was given IV Protonix, IV normal saline, calcium and insulin in the ER. The patient was not dizzy upon standing, although there were orthostatic changes ( albeit HTN). He did have some shortness of breath with exertion, otherwise there is no chest pain, LOC, or shortness of breath at rest. There was no gross hematuria or hemoptysis. The patient denies any history of bleeding disorders. The patient has required intermittent transfusions in the past. According to cardiology, in view of the recurrent anemia & epistaxis, the risk:benefit ratio no longer warranted anticoagulation therapy. The patient denies any GERD, odynophagia, dysphagia, nausea, vomiting, early satiety, abdominal pain, change in appetite, fevers, chills, jaundice, diarrhea, constipation, obstipation, or tenesmus. His weight is relatively stable. Baby aspirin was held on admission. The patient was not on outpatient PPI. The intermittent dark stools were for 3 weeks [facility]. *There is no true aspirin "allergy," despite what the records imply. 11/11/16: *Ferritin 13.8, B12 546, folate > 20 11/12/16: *peak troponin (to date) 0.13 11/12/16: EKG- NSR @ 62, 1st degree AVB, LAE, RBBB, post PPM. *The patient's anemia is multifactorial (CKD/epistaxis). Iron deficiency is noted. Past history of H. pylori infection (treatment regiman unknown 05/28/07) is noted. Based on age -appropriate surveillance guidelines, he is up-to-date on screening colonoscopy. As per my discussion with Dr. Jamison, Dr. Booth has stopped the patient's anti-coagulation therapy, regarding PAF (currently in NSR) indefinitely, based on recurrent epistaxis, anemia, and history of falls. He was on outpatient aspirin 81 mg daily, but not on PPI. The family history of gastric CA (M- 78) is noted. The intermittent dark stool over the past 3 weeks [facility] is noted, statistically, most likely from swallowed blood post epistaxis. The mild acute on chronic elevated BUN is noted, which may be from similar reasons. Rule out simultaneous upper GI bleeding (i.e.- PUD/neoplasm/angiodysplasia/Dieulafoy lesion, etc.). There is nothing by history to suggest varices. I feel that a right-sided colonic source or small bowel etiology would be much less likely. The mild troponin bump is felt to be from demand ischemia, due to symptomatic anemia, and the patient was cleared fror EGD by Dr. Jamison, from a cardiac perspective SUGGEST: NPO. IV PPI daily. Serial CBC BID. Keep Hgb > 8 with history of ASHD. Supplemental O2 as needed. *Stool antigen for H. pylori (to document eradication ). Follow-up with ENT for epistaxis. Continue iron repletion. Follow-up with renal, regarding Procrit. For EGD later today, with further recommendations to follow. Informed consent for EGD was obtained from the patient after careful explanation of the risks & benefits. As per cardiology, anticoagulation is on hold indefinitely for now (epistaxis/falls/anemia). If active rebleed, would move to ICU. Cardiology to follow troponin trends. Will speak with cardiology again regarding when to resume aspirin, after performing EGD. The above was discussed with the medical house staff, Dr. Stout, and Dr. Jamison (covering for Dr. Booth). Further recommendations to follow, depending on clinical course. Problem List: 1. Symptomatic anemia 2. Epistaxis, recurrent 3. Occult blood positive stool 4. History of Helicobacter pylori infection Copies To: BRII PRIETO,ANGIE Pride; ORESTES PRIETO,JOSE MIGUEL; MARK PRIETO,CECIL Nguyễn; DAVID PRIETO,ALPHONSO Urias; JAZMIN PRIETO,MEREDITH; LAZARO PRIETOGREGORIA MD,SABINE Harrell Acknowledgment - Thank you for your consult request.
--- NOTE | 2016-11-12 11:57 | Cons- Cardiology ---
General Information and HPI Consulting Request Date of Consult: 11/12/16 Requested By: LAZARO PRIETO,CARLALAKSHMI Reason for Consult: Coronary artery disease, positive troponin History of Present Illness: The patient is an 81-year-old male who is followed by Dr. Booth. He has a history of coronary artery disease, paroxysmal atrial fibrillation, permanent pacemaker, chronic kidney disease, and diabetes mellitus. He has been having recurrent epistaxis. He was admitted to [facility] in August for the epistaxis while on anticoagulation. Anticoagulation was restarted on discharge, however the patient reports that the anticoagulation was later discontinued by Dr. Flores because of recurrent epistaxis. He is now on low-dose aspirin for his atrial fibrillation. He has continued to have recurrent epistaxis with large volumes of bleeding. He follows up with ENT for the epistaxis. He was sent to the hospital by his primary care physician because of low hemoglobin and hematocrit values. His most recent episode of epistaxis was approximately 10 days ago. For the past few days he's been having shortness of breath, lightheadedness, and dizziness. He also reports a 3 week history of dark stools. No chest pain. He notes occasional mild shortness of breath with exertion. No recent syncope. No hemoptysis. No hematemesis. No abdominal pain. He is noted to have a mild troponin. He is planned for upper endoscopy to evaluate for GI bleed as a contributing factor to the anemia. Allergies/Medications Allergies: Coded Allergies: aspirin ("I HAVE TOO MUCH ACID IN ME" 08/26/16) Home Med List: Aspirin (Ecotrin*) 81 MG TABLET.DR 1 TAB PO DAILY HEART HEALTH (Reported) Cyclosporine (Restasis) 0.05 % DROPERETTE 1 GTT OPH BID EYE (Reported) Ferrous Sulfate (IRON) 325 MG (65 MG IRON) TABLET 1 TAB PO BID Anemia Finasteride 5 MG TABLET 1 TAB PO DAILY PROSTATE (Reported) Furosemide 20 MG TABLET 1 TAB PO DAILY edema (Reported) Glimepiride 4 MG TABLET 0.5 TAB PO DAILY DIABETES (Reported) Hydralazine HCl 25 MG TABLET 1 TAB PO TID HEART (Reported) Metoprolol Tartrate 25 MG TABLET 1 TAB PO BID HEART (Reported) Pravastatin Sodium 40 MG TABLET 1 TAB PO QPM CHOLESTEROL (Reported) Sennosides (Senna) 8.6 MG TABLET 2 TAB PO DAILY PRN Constipation Sodium Bicarbonate 650 MG TABLET 1 TAB PO BID SUPPLEMENT (Reported) Sodium Polystyrene Sulfon/Sorb (Sps 15 Gm/60 Ml Suspension) 15 GRAM-20 GRAM/60 ML ORAL.SUSP 60 ML PO MoTh Hyperkalemia Please take this medication twice a week. Once on Friday and Once on . Tramadol HCl 50 MG TABLET 1 TAB PO BID PAIN (Reported) Travoprost (Travatan Z) 0.004 % DROPS 1 GTT OPH QPM EYE (Reported) Current Medications: Current Medications Sig/Magaly Start time Last Medication Dose Route Stop Time Status Admin Acetaminophen 650 MG .STK-MED ONE 11/12 0000 DC PO 11/12 0001 Acetaminophen 650 MG Q6P PRN 11/11 2215 AC 11/12 PO 0003 Calcium Gluconate 0 .STK-MED ONE 11/11 2015 DC IV Calcium Gluconate 1 GM ONCE ONE 11/11 1944 DC 11/11 Sodium Chloride 100 ML IV 11/11 Dextrose 25 GM ONCE ONE 11/11 1944 DC 11/11 IV 11/11 1945 204 Ferrous Sulfate 325 MG BID 11/12 1000 AC 11/12 PO 0944 Finasteride 5 MG DAILY 11/12 1000 AC 11/12 PO 0944 Hydralazine HCl 25 MG Q8 11/12 0600 AC 11/12 PO 0642 Hydralazine HCl 25 MG ONCE ONE 11/11 2315 DC 11/12 PO 11/11 2316 0003 Insulin Human Regular 0 Q6 11/11 2359 AC 11/12 SC 0126 Insulin Human Regular 0 Q6 11/11 2359 CAN SC Insulin Human Regular 10 UNITS ONCE ONE 11/11 1944 DC 11/11 IV 11/11 194 204 Latanoprost 1 GTT AT BEDTIME 11/12 2200 AC OPH Latanoprost 1 GTT AT BEDTIME 11/12 2200 CAN OPH Metoprolol Tartrate 25 MG BID 11/12 1000 AC 11/12 PO 0944 Metoprolol Tartrate 25 MG ONCE ONE 11/11 2315 DC 11/12 PO 11/11 2316 0004 Pantoprazole Sodium 40 MG DAILY 11/12 1000 AC 11/12 IV 0945 Pantoprazole Sodium 0 .STK-MED ONE 11/11 2030 DC IV Pantoprazole Sodium 40 MG ONCE ONE 11/11 1944 DC 11/11 IV 11/11 1945 204 Pravastatin Sodium 40 MG 1700 11/12 1700 AC PO Sodium Chloride 1,000 ML .[id number] 11/11 2215 AC 11/12 IV 0642 Sodium Chloride 1,000 ML ONCE ONE 11/11 1945 DC 11/11 IV 11/12 343 2019 Sodium Polystyrene 60 ML ONCE ONE 11/12 0915 DC 11/12 Sulfonate PO 11/12 0916 0945 Tramadol HCl 50 MG BID 11/12 1000 AC 11/12 PO 0944 Review of Systems Review of Systems: No rash. No tremor. No diaphoresis. No orthopnea. All other systems were reviewed, and were noted to be negative. 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 Home Who Do You Live With? self Services at Home: None Primary Language: Indonesian Smoking Status: Never Smoked Functional Ability ADLs Independent: dressing, eating, toileting, bathing. Ambulation: cane IADLs Independent: shopping, housework, finances, food prep, telephone. Needs Assist: transportation, medication admin. Exam & Diagnostic Data Vital Signs and I&O Vital Signs Date Time Temp Pulse Resp B/P Pulse O2 O2 Flow FiO2 Ox Delivery Rate 11/12 0944 166/74 11/12 0800 98.2 64 20 170/80 93 Room Air 11/12 0642 64 174/84 11/12 0430 98.4 67 20 180/80 11/12 0205 98.3 63 20 160/78 11/12 0150 97.8 62 20 150/74 11/12 0105 97.7 62 20 158/72 11/12 0004 200/90 11/12 0003 200/90 11/11 2255 98.0 86 20 200/90 97 Room Air 11/11 2210 98.2 81 22 180/83 98 11/11 2054 98.0 78 22 180/83 98 Room Air 11/11 1830 97.6 76 18 187/73 97 Room Air Intake & Output 11/12 1600 11/12 0800 11/12 0000 11/11 1600 11/11 0800 11/11 0000 Intake Total 700 Output Total 250 300 Balance 450 -300 Intake, Blood 600 Product Intake, IV 100 Output, Urine 250 300 Patient 154 lb Weight Physical Exam: Gen: The patient is in no acute distress HEENT: Normal nose, ears, and oropharynx. Pupils equal bilaterally. Conjunctiva normal. Neck: Supple with no JVD, no masses, and no thyromegaly Lungs: Clear to auscultation with normal respiratory effort Heart: S1, S2, 1/6 systolic murmur. No peripheral edema, 2+ pulses in the lower extremities bilaterally Abdomen: Soft, nontender, no masses. No hepatomegaly. No splenomegaly Extremities: No clubbing or cyanosis. Normal muscle strength in the upper and lower extremities Skin: Normal skin turgor with no skin ulcers or lesions noted. Neuro: Cranial nerves intact. Sensation intact Psych: Alert and oriented 3 with appropriate affect Labs/Dung Results: Laboratory Tests 11/12 11/12 0600 0230 Chemistry Sodium (137 - 145 mmol/L) 142 Potassium (3.5 - 5.1 mmol/L) 5.7 H Chloride (98 - 107 mmol/L) 111 H Carbon Dioxide (22 - 30 mmol/L) 19 L Anion Gap (5 - 16) 12 BUN (9 - 20 mg/dL) 56 H Creatinine (0.7 - 1.2 mg/dL) 3.8 H Estimated GFR (>60 ml/min) 15 L BUN/Creatinine Ratio (7 - 25 %) 14.7 Troponin I (<0.11 ng/ml) 0.13 *H 0.12 *H Coagulation PT Cancelled INR Cancelled Hematology CBC w Diff NO MAN DIFF REQ WBC (4.8 - 10.8 /CUMM) 5.7 RBC (4.70 - 6.10 /CUMM) 3.12 L Hgb (14.0 - 18.0 G/DL) 8.7 L Hct (42 - 52 %) 26.1 L MCV (80.0 - 94.0 FL) 83.7 MCH (27.0 - 31.0 PG) 27.7 RDW (11.5 - 14.5 %) 20.6 H Plt Count (130 - 400 /CUMM) 237 MPV (7.4 - 10.4 FL) 7.7 Gran % (42.2 - 75.2 %) 67.8 Lymphocytes % (20.5 - 51.1 %) 20.3 L Monocytes % (1.7 - 9.3 %) 8.4 Eosinophils % (0 - 5 %) 3.1 Basophils % (0.0 - 2.0 %) 0.4 Absolute Granulocytes (1.4 - 6.5 /CUMM) 3.8 Absolute Lymphocytes (1.2 - 3.4 /CUMM) 1.2 Absolute Monocytes (0.10 - 0.60 /CUMM) 0.5 Absolute Eosinophils (0.0 - 0.7 /CUMM) 0.2 Absolute Basophils (0.0 - 0.2 /CUMM) 0 PUBS MCHC (33.0 - 37.0 G/DL) 33.2 11/11 Coagulation PT (9.4 - 12.5 SEC) 11.8 INR (0.90 - 1.17) 1.13 Urines Urine Color (YEL,AMB,STR) YEL Urine Clarity (CLEAR) CLEAR Urine pH (5.0 - 8.0) 6.5 Ur Specific [place] (1.001 - 1.035) 1.015 Urine Protein (NEG,<30 MG/DL) 30 H Urine Ketones (NEG) NEG Urine Nitrite (NEG) NEG Urine Bilirubin (NEG) NEG Urine Urobilinogen (0.1 - 1.0 EU/dl) 0.2 Ur Leukocyte Esterase (NEG) NEG Ur Microscopic SEDIMENT EXAMINED Urine RBC (0 - 5 /HPF) RARE Urine WBC (0 - 2 /HPF) RARE Urine Hemoglobin (NEG) TRACE-INTACT H Urine Glucose (N MG/DL) NEG 11/11 1840 Chemistry Sodium (137 - 145 mmol/L) 140 Potassium (3.5 - 5.1 mmol/L) 5.9 H Chloride (98 - 107 mmol/L) 107 Carbon Dioxide (22 - 30 mmol/L) 20 L Anion Gap (5 - 16) 13 BUN (9 - 20 mg/dL) 62 H Creatinine (0.7 - 1.2 mg/dL) 3.7 H Estimated GFR (>60 ml/min) 16 L BUN/Creatinine Ratio (7 - 25 %) 16.8 Glucose (65 - 99 mg/dL) 150 H Calcium (8.4 - 10.2 mg/dL) 9.6 Total Bilirubin (0.2 - 1.3 mg/dL) 0.5 AST (17 - 59 U/L) 28 ALT (21 - 72 U/L) 37 Alkaline Phosphatase (< 127 U/L) 77 Troponin I (<0.11 ng/ml) 0.10 Total Protein (6.3 - 8.2 g/dL) 6.5 Albumin (3.5 - 5.0 g/dL) 3.8 Globulin (1.9 - 4.2 gm/dL) 2.7 Albumin/Globulin Ratio (1.1 - 2.2 %) 1.4 Hematology CBC w Diff NO MAN DIFF REQ WBC (4.8 - 10.8 /CUMM) 5.9 RBC (4.70 - 6.10 /CUMM) 2.39 L Hgb (14.0 - 18.0 G/DL) 6.4 *L Hct (42 - 52 %) 19.8 *L MCV (80.0 - 94.0 FL) 83.2 MCH (27.0 - 31.0 PG) 26.7 L RDW (11.5 - 14.5 %) 24.7 H Plt Count (130 - 400 /CUMM) 286 MPV (7.4 - 10.4 FL) 7.3 L Gran % (42.2 - 75.2 %) 73.2 Lymphocytes % (20.5 - 51.1 %) 15.9 L Monocytes % (1.7 - 9.3 %) 8.9 Eosinophils % (0 - 5 %) 1.5 Basophils % (0.0 - 2.0 %) 0.5 Absolute Granulocytes (1.4 - 6.5 /CUMM) 4.4 Absolute Lymphocytes (1.2 - 3.4 /CUMM) 0.9 L Absolute Monocytes (0.10 - 0.60 /CUMM) 0.5 Absolute Eosinophils (0.0 - 0.7 /CUMM) 0.1 Absolute Basophils (0.0 - 0.2 /CUMM) 0 PUBS MCHC (33.0 - 37.0 G/DL) 32.1 L Diagnostic Data EKG Results EKG tracing from 11/11/16 is reviewed, and reveals normal sinus rhythm at 80, first-degree AV block, right bundle branch block CXR Results Chest x-ray 10/10/14: Interval resolution of left pleural effusion. Lungs are clear. Assessment/Plan Assessment/Plan The patient is an 80-year-old male with history of CAD, status post CABG, paroxysmal atrial fibrillation, permanent pacemaker, chronic kidney disease, diabetes mellitus, and recurrent epistaxis. He presents with lightheadedness, dizziness, and shortness of breath secondary to anemia. The anemia is at least partially secondary to epistaxis, with possible GI bleed as a contribute factor. He denies any chest pain, and he notes occasional mild dyspnea on exertion in the setting of the severe anemia. He is noted to have a mild troponin elevation , which is likely demand ischemia secondary to the anemia. He is plan for upper endoscopy. Recommendations: * Cardiac risk for GI procedures is acceptable. The patient is cleared from a cardiac standpoint for the planned upper endoscopy. * He will remain off anticoagulation. He should follow up with Dr. Flores as an outpatient one week after discharge, which time the option of restarting anticoagulation will be discussed. * Low-dose aspirin is on hold for now, and should be restarted prior to discharge if possible. * Blood pressure is noted to be elevated. We will continue to monitor blood pressure for now, and consider increasing hydralazine dose of it remains elevated. Consult Acknowledgment - Thank you for your consult request.
--- NOTE | 2016-11-12 13:09 | Proc Note Endoscopy ---
Endoscopy Procedure Medical History: unchanged Mental Status: alert/oriented Heart/Lung Eval Prior to Sedation: within normal limits (cleared by cardio preop ) Candidate for Sedation? 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 The patient has had numerous episodes of epistaxis, most recently requiring cautery and packing over the past month. There was no overt hematemesis or BRBPR. The patient was not on NSAIDs, just Tramodol for DJD/post right THR 04/30/07. *The patient had a mild troponin bump 0.13, felt to be secondary to demand ischemia from anemia, and was cleared by Dr. Jamison, of cardiology, preoperatively. Positive family history of gastric CA (M- 76). Positive family history of liver cancer (F- 83, primary vs. met). 27/04: Combined upper endoscopy/colonoscopy to the cecum- duodenitis, mild chronic antral gastritis, H. pylori positive, moderate chronic fundic gastritis, H. pylori positive, without Ca, Z line at 40 cm, tiny hiatal hernia; moderate left sided diverticula, mild internal hemorrhoids, normal mucosa to the cecum. [ *I am not certain what H. pylori regimen the patient was treated with at that time, as the records have been purged]. Instrument: diagnostic gastroscope Meds Received: MAC Patient's Tolerance: good Complications: none Extent Reached: D3 Procedure: Follow-up upper endoscopy to the third portion of the duodenum with biopsies, was performed with the Olympus high definition videoendoscope, after obtaining informed consent from the patient, with the monitor tech and pulse oximeter, with the assistance of Dr. Garcia, of [facility]. A mouthpiece was placed in the usual fashion to protect the patient's teeth. The patient was placed in the left lateral decubitus position and sedated by [facility]. At this point, the endoscope was advanced from the mouth into the esophagus, using direct visualization technique. I did not get a good look at the vocal cords. The esophageal mucosa appeared normal. There were no esophageal webs, lesions, strictures, or ulcers. There was no monilia or vesicles. There was no esophageal ribbing. The Z line was well demarcated at 40 cm, with an asymptomatic, incidental, widely patent lower esophageal ring at 40 cm. There was a scant hiatal hernia pouch, without any Robby erosions. No significant esophageal inflammation was seen. There were no ectopic islands, nor gross Adrian's esophagus. There were no esophageal or gastric varices, nor any Althea Hsieh tear. The waggoner of the stomach distended normally with air insufflation. Direct and retroflexed views of the stomach were performed. There was nothing endoscopically to suggest gastroparesis or portal gastropathy. The mucosa of the gastric cardia, fundus, lesser curvature, incisura, and body appeared normal, without any gastric ulcers or gastric lesions. A random biopsy of the gastric fundus was obtained: (Specimen B- rule out H. pylori). The gastric antrum showed some mild erythema, which was biopsied: (Specimen A- rule out H. pylori). The pylorus was patent, without any gastric outlet obstruction or channel ulcer. *The duodenal bulb showed a fairly deep, clean-based, symmetrical, organizing 1 cm duodenal ulcer at the posterior aspect, with heaped up edges, without any clot or visible vessel. The duodenal ulcer was left intact, without any therapeutics, as no fresh or old blood was seen. There was a faint contralateral duodenal erosion in the duodenal bulb. The duodenal sweep and third portion of the duodenum appeared normal, without any distal ulcerations, or angiodysplasias. I was not able to see the ampulla with the direct-viewing scope. The folds of the second and third portions of the duodenum were normal in caliber, without any flattening, nodularity, scalloping, or mosaic pattern. No active upper GI bleeding was seen. The patient tolerated the procedure well. *Documenting photographs were obtained and placed inside the patient's chart. Impression: 1. Fairly deep, clean-based, symmetrical, organizing 1 cm duodenal ulcer at the posterior aspect of the duodenal bulb, with heaped up edges, without any clot or visible vessel, left intact, without any therapeutics, as no fresh or old blood was seen. Faint contralateral duodenal erosion in the duodenal bulb. 2. Mild antral erythema, biopsied: (Specimen A- rule out H. pylori). 3. Random biopsy of gastric fundus: (Specimen B- rule out H. pylori). 4. Asymptomatic, incidental, widely patent lower esophageal ring at the Z line at 40 cm, with scant hiatal hernia pouch. Recommendations: *Await gastric biopsies (r/o H. pylori). *Check stool Ag H. pylori. Check CBC Q12h for now. Keep Hgb > 8 with history of ASHD. Supplemental O2 as needed. * Omeprazole 40 mg po BID. No NSAIDs. Clears po, then advance diet as tolerated. * Keeping in mind risk:benefit ratio, prefer not resuming ECASA 81 mg po daily for at least 1 week, while maintaining patient on PPI. Follow up with ENT for epistaxis. *Continue iron repletion. *Follow-up with renal, regarding Procrit. At present, no clinical indication for repeating colonoscopy, unless status changes, as the patient has epistaxis, duodenal ulcer, and renal failure to account for the anemia. The above was discussed with the patient, the medical house staff, Dr. Jamison, and Dr. Stout, postoperatively. ADDENDUM: 11/15/2016- A. MILD ANTRAL ERYTHEMA, BIOPSY: MILD CHRONIC ANTRAL GASTRITIS. NEGATIVE FOR ACUTE ACTIVITY AND INTESTINAL METAPLASIA. GIEMSA STAIN IS NEGATIVE FOR HELICOBACTER ORGANISMS. B. GASTRIC FUNDUS, RANDOM BIOPSY: MILD CHRONIC FUNDIC GASTRITIS. NEGATIVE FOR ACUTE ACTIVITY AND INTESTINAL METAPLASIA. GIEMSA STAIN IS NEGATIVE FOR HELICOBACTER ORGANISMS. Dictated by: ELLE MARTINEZ MD Bxs of mild antral erythema- mild CAG, *HP-neg. Random bxs gastric fundus- mild CFG, *HP-neg. *+DU. 11/13/16: *stool Ag H. pylori-[*negative]. The pt was D/C 11/14/16. I called the patient at [phone] & left him a detailed message, on 11/15/2016 at 6:25 p.m. regarding the biopsies & plan. I then called him at & discussed the above with him. *Continue Omeprazole 40 mg po BID for now. No NSAIDs. *2g Na+, DM, renal, heart healthy diet as tolerated. *Keeping in mind risk:benefit ratio, prefer not resuming ECASA 81 mg po daily for at least 1 week post EGD, while maintaining patient on PPI, probably indefinitely. *As per my previous discussion with Dr. Jamison, Dr. Booth stopped A/C therapy indefinitely regarding PAF, due to recurrent anemia, epistaxis, falls, etc. Follow up with ENT for epistaxis. *Continue iron repletion. *Follow-up with renal, regarding Procrit. At present, no clinical indication for repeating colonoscopy, unless status changes, as the patient has epistaxis, duodenal ulcer , and renal failure to account for the anemia. I advised the patient to get a repeat CBC x 1 week. This can be arranged with either his PMD, Dr. Smiley, or by my office. I advised a follow-up GI OV x few weeks, but to call sooner if bleeding recurred. CC: BRII PRIETO,ANGIE Pride; ORESTES PRIETO,JOSE MIGUEL; MARK PRIETO,CECIL Nguyễn; DAVID PRIETO,ALPHONSO Urias; JAZMIN PRIETO,MEREDITH; LAZARO PRIETO,[facility]; KARRIE PRIETO,SABINE
[2016-11-13] VITALS: BP 168/82
[2016-11-13 00:43] LABS: ABSOLUTE BASOPHIL COUNT 0 /CUMM (0.0-0.2); ABSOLUTE EOSINOPHIL COUNT 0.3 /CUMM (0.0-0.7); ABSOLUTE GRANULOCYTE CT 3.1 /CUMM (1.4-6.5); ABSOLUTE LYMPH COUNT 1.2 /CUMM (1.2-3.4); ABSOLUTE MONOCYTE COUNT 0.6 /CUMM (0.10-0.60); BASOPHIL % 0.5 % (0.0-2.0); EOSINOPHIL % 5.1 % (0-5); GRANULOCYTE % 59.7 % (42.2-75.2); HEMATOCRIT 25.1 % (42-52); MEAN CORPUSCULAR HGB 27.6 PG (27.0-31.0); MEAN CORPUSCULAR HGB CONC 33.3 G/DL (33.0-37.0); MEAN CORPUSCULAR VOLUME 82.7 FL (80.0-94.0); MEAN PLATELET VOLUME 7.4 FL (7.4-10.4); PLATELET COUNT 240 /CUMM (130-400); RBC DISTRIBUTION WIDTH 20.6 % (11.5-14.5); RED BLOOD CELL CT 3.04 /CUMM (4.70-6.10); WHITE BLOOD CELL COUNT 5.2 /CUMM (4.8-10.8)
--- NOTE | 2016-11-13 07:33 | PN- Housestaff ---
SELVIN PRIETO,[facility] 11/13/16 0733: Subjective Follow-up For: Symptomatic acute on chronic anemia Hyperkalemia Diabetes Tele-Events Since Last Visit: Jeffery rhythm, first-degree heart block, PVC, heart rate 64-69 Subjective: Patient seen and examined this morning. He was lying in bed comfortably in no acute distress, he has had endoscopy done yesterday revealing a duodenal ulcer, remains on clear liquid diet tolerating well, we'll advance as tolerated. Afebrile, other vitals stable, H&H stable. Review of Systems Constitutional: Denies: chills, fever. Cardiovascular: Denies: chest pain, palpitations. Respiratory: Denies: cough, short of breath, sputum production. Gastrointestinal: Denies: abdominal pain, constipation, diarrhea, nausea, vomiting. Genitourinary: Denies: dysuria, frequency. Objective Last 24 Hrs of Vital Signs/I&O Vital Signs Date Time Temp Pulse Resp B/P Pulse O2 O2 Flow FiO2 Ox Delivery Rate 11/13 1239 76 178/11/13 0823 76 178/11/13 0800 98.2 77 20 180/70 96 Room Air 11/13 0642 76 17811/13 0000 98.4 68 18 168/82 97 Room Air 11/12 2106 77 174/88 11/12 2106 77 174/88 11/12 1546 97.5 67 20 166/62 94 Room Air Intake & Output 11/13 1600 11/13 0800 11/13 0000 Intake Total 720 250 450 Output Total 400 Balance 720 -150 450 Intake, IV 0 0 Intake, Oral 720 250 450 Number 2 0 0 Bowel Movements Output, Urine 400 Physical Exam General Appearance: Alert, Oriented X3, Cooperative, No Acute Distress Cardiovascular: Regular Rate, Normal S1, Normal S2, No Murmurs Lungs: Clear to Auscultation, Normal Air Movement Abdomen: Normal Bowel Sounds, Soft, No Tenderness Extremities: No Clubbing, No Cyanosis, No Edema Current Medications: Current Medications Sig/Magaly Start time Last Medication Dose Route Stop Time Status Admin Acetaminophen 650 MG Q6P PRN 11/11 2215 AC 11/12 PO 0003 Artificial Tears 2 GTT TID 11/12 2200 AC 11/13 OPH 0823 Ferrous Sulfate 325 MG BID 11/12 1000 AC 11/13 PO 0823 Finasteride 5 MG DAILY 11/12 1000 AC 11/13 PO 0823 Hydralazine HCl 25 MG Q8 11/12 0600 AC 11/13 PO 1239 Insulin Aspart 0 TIDAC 11/12 1700 AC SC Insulin Human Regular 0 Q6 11/11 2359 DC 11/12 SC 0126 Latanoprost 1 GTT AT BEDTIME 11/12 2200 AC 11/12 OPH 2107 Metoprolol Tartrate 25 MG BID 11/12 1000 AC 11/13 PO 0823 Omeprazole 40 MG BID 11/12 2200 AC 11/13 PO 0823 Pravastatin Sodium 40 MG 1700 11/12 1700 AC 11/12 PO 1756 Sodium Chloride 1,000 ML .[id number] 11/11 2215 DC 11/12 IV 0642 Tramadol HCl 50 MG BID 11/12 1000 AC 11/13 PO 0824 Last 24 Hrs of Lab/Dung Results Last 24 Hrs of Labs/Mics: Laboratory Tests 11/13/16 1125: Anion Gap 10, Estimated GFR 16 L, BUN/Creatinine Ratio 11.9, CBC w Diff NO MAN DIFF REQ, RBC 3.17 L, MCV 83.9, MCH 27.9, RDW 20.8 H, MPV 7.5, Gran % 67.9, Lymphocytes % 17.1 L, Monocytes % 10.4 H, Eosinophils % 4.0, Basophils % 0.6, Absolute Granulocytes 3.2, Absolute Lymphocytes 0.8 L, Absolute Monocytes 0.5, Absolute Eosinophils 0.2, Absolute Basophils 0, PUBS MCHC 33.2 11/13/16 0900: Stool H. pylori Ag Pending 11/13/16 0600: CBC w Diff Cancelled, WBC Cancelled, RBC Cancelled, Hgb Cancelled, Hct Cancelled , MCV Cancelled, MCH Cancelled, RDW Cancelled, Plt Count Cancelled, MPV Cancelled, PUBS MCHC Cancelled 11/13/16 0015: Anion Gap 10, Estimated GFR 16 L, BUN/Creatinine Ratio 12.7, CBC w Diff NO MAN DIFF REQ, RBC 3.04 L, MCV 82.7, MCH 27.6, RDW 20.6 H, MPV 7.4, Gran % 59.7, Lymphocytes % 23.0, Monocytes % 11.7 H, Eosinophils % 5.1 H, Basophils % 0.5, Absolute Granulocytes 3.1, Absolute Lymphocytes 1.2, Absolute Monocytes 0.6, Absolute Eosinophils 0.3, Absolute Basophils 0, PUBS MCHC 33.3 11/12/16 1500: Sodium Cancelled, Potassium Cancelled, Chloride Cancelled, Carbon Dioxide Cancelled, Anion Gap Cancelled, BUN Cancelled, Creatinine Cancelled, BUN/ Creatinine Ratio Cancelled, CBC w Diff Cancelled, WBC Cancelled, RBC Cancelled, Hgb Cancelled, Hct Cancelled, MCV Cancelled, MCH Cancelled, RDW Cancelled, Plt Count Cancelled, MPV Cancelled, PUBS MCHC Cancelled Assessment/Plan Assessment: This is 81 years old male with past medical history of paroxysmal A. fib status post pacemaker placement currently not on anticoagulation due to anemia, see Blanca stage III, type 2 diabetes, CAD status post three-vessel CABG, recent history of nosebleed presented from home with chief complaint of lightheadedness and shortness of breath found to have significant anemia on routine workup. Patient also reported 3 weeks history of on and off dark BM and recently started on aspirin. Upon presentation -His vitals on admission were T 98, HR 76, RR 18, BP 187/73, O2 sat 97% on room air. On physical exam patient is alert oriented 3 in no acute distress, HEENT PERRLA EOMI, neck supple, heart S1-S2 normal with systolic murmur, lungs clear on auscultation, abdomen soft nontender nondistended with preserved bowel sounds, no peripheral edema, no focal gross neuro deficit. Labs revealed microcytic anemia with H&H 6.4/19.8 (baseline H&H 8.8/27 in 2015), BUN/creatinine 62/37 (baseline 34/3.2 in 09/2016), troponin 0.10--> 0.12, INR 1.13 UA noted having trace hemoglobin EKG revealed normal sinus rhythm at rate of 80 with previously noted RBBB and first-degree AV block, QTC 480 He was admitted to telemetry floor and is currently being monitored for the following conditions: #Symptomatic acute on chronic anemia Patient presenting with symptoms of shortness of breath, lightheadedness and dizziness, and possibly black tarry stool and with hemoglobin levels value of 6.1 and hematocrit of 19.8. Possible etiology of patient's anemia includes recurrent history of epistaxis, However, the patient hasn't had an episode since about 1 and 1/2 weeks ago. Patient complains of blood tarry stool in the setting of aspirin use is concerning for GI etiology such as an ulcer. He received 2 units of packed red blood cells H&H posttransfusion 8.7 and 26.1. Patient status post endoscopy yesterday revealing a duodenal ulcer, started on a clear liquid diet tolerating well, advance as tolerated we'll continue with GI prophylaxis with Protonix IV 40 mg daily. Patient to follow-up with gastroenterology upon discharge. He is to avoid NSAIDs, no aspirin for a week as per GI recommendation, further plans of anticoagulation to be discussed with injection maintenance technician upon discharge in a week. #Hyperkalemia .Most likely secondary to patient's chronic kidney disease. Patient is not on any medication that creases risk of hyperkalemia. No acute EKG changes noted. Kayexalate was administered we'll monitor repeat labs for potassium levels #Acute on chronic kidney injury Patient creatinine baseline averages around 3.3. BUN/creatinine ratio does not depict a prerenal etiology. will monitor repeat labs and in the meanwhile avoid any nephrotoxic drugs. #History of CAD Likely demand ischemia, troponins 0.12 and 0.13, without any acute EKG changes, will Trend serial troponins and EKG to rule out ACS in the setting of symptomatic anemia. Aspirin on hold for now, will consult GI to be started. #History of diabetes. We'll start patient on insulin sliding scale with fingersticks TIDAC/hs along with Levemir, diabetic diet, HbA1c pending # DVT prophylaxis with Alps Patient is DNR/DNI. Problem List: 1. Duodenal ulcer 2. History of Helicobacter pylori infection 3. Epistaxis, recurrent 4. [id number] kidney injury Pain Ratin Pain Location: None Pain Goal: Remain pain free Pain Plan: Mild pain pathway Tomorrow's Labs & Rationales: The CBC H&H monitoring status post transfusion BEP for lites monitoring JOSE MIGUEL CARLISLE MD 11/13/16 1444: Attending Review Statement Attending Statement Attending Statement: examined this patient, discuss w/resident/PA/AIRCRAFT LOAD CONTROLLER, agreed w/resident/PA/AIRCRAFT LOAD CONTROLLER, reviewed EMR data (avail), discussed with nursing, discussed with case mgmt, amended to note Attending Assessment/Plan: The patient was seen and discussed with house staff. Tolerating liquids. Will advance diet and follow-up H/H. Ambulate.
[2016-11-13 08:00] VITALS: BP 180/70
--- NOTE | 2016-11-13 08:26 | Patient Discharge Instructions ---
Discharge Instructions General Discharge Information You were seen/treated for: Symptomatic acute on chronic anemia Duodenal ulcer found by endoscopy Hyperkalemia Acute on chronic kidney injury You had these procedures: Endoscopy: 1. Fairly deep, clean-based, symmetrical, organizing 1 cm duodenal ulcer at the posterior aspect of the duodenal bulb, with heaped up edges, without any clot or visible vessel, left intact, without any therapeutics, as no fresh or old blood was seen. Faint contralateral duodenal erosion in the duodenal bulb. 2. Mild antral erythema, biopsied: (Specimen A- rule out H. pylori). 3. Random biopsy of gastric fundus: (Specimen B- rule out H. pylori). 4. Asymptomatic, incidental, widely patent lower esophageal ring at the Z line at 40 cm, with scant hiatal hernia pouch. Watch for these problems: Any repeat episodes of epistaxis, nausea, epigastric pain, take pantoprazole as prescribed, avoid nsaids for now. Special Instructions: please f/u with your PCP(repeat CBC in one week), manager of purchasing in one week. take pantoprazole as instructed.aspirin on hold, follow up with manager of purchasing on when to resume it. Follow up with your groundskeeper porter in one week for biops result. you have been started on a new medication Amlodipine 5mg, please f/u with your PCP to adjust dose as per your blood pressure control and goals. Diet Recommended Diet: Renal Non Dialysis Activity Activity Self Limited: Yes Acute Coronary Syndrome Inclusion Criteria At DC or during hospital stay patient has or had the following: ACS DIAGNOSIS No Discharge Core Measures Meds if any: Prescribed or Continued at Discharge Meds if any: NOT Prescribed or Continued at Discharge Congestive Heart Failure Inclusion Criteria At DC or during hospital stay patient has or had the following: CHF DIAGNOSIS No Discharge Core Measures Meds if any: Prescribed or Continued at Discharge Meds if any: NOT Prescribed or Continued at Discharge Cerebrovascular accident Inclusion Criteria At DC or during hospital stay patient has or had the following: CVA/TIA Diagnosis No Discharge Core Measures Meds if any: Prescribed or Continued at Discharge Meds if any: NOT Prescribed or Continued at Discharge Venous thromboembolism Inclusion Criteria VTE Diagnosis No VTE Type NONE VTE Confirmed by (Test) NONE Discharge Core Measures - Per Current guidelines, there needs to be overlap - treatment for the first 5 days of Warfarin therapy. - If discharged on Warfarin prior to 5 days of - overlap therapy, the patient will need to be - assessed for post discharge needs including - *Post discharge parental anticoagulation - *Warfarin and/or parental anticoagulation education - *Follow up date to check INR post discharge At least 5 days overlap therapy as Inpatient No Meds if any: Prescribed or Continued at Discharge Note: Overlap Therapy is Warfarin and Anticoagulant Meds if any: NOT Prescribed or Continued at Discharge
--- NOTE | 2016-11-13 08:35 | PN- Gastroenterology ---
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 The patient has had numerous episodes of epistaxis, most recently requiring cautery and packing over the past month. There was no overt hematemesis or BRBPR. The patient was not on NSAIDs, just Tramodol for DJD/post right THR 04/30/07. *The patient had a mild troponin bump 0.13, felt to be secondary to demand ischemia from anemia, and was cleared by Dr. Jamison, of cardiology, preoperatively. Positive family history of gastric CA (M- 76). Positive family history of liver cancer (F- 83, primary vs. met). 27/04: Combined upper endoscopy/colonoscopy to the cecum- duodenitis, mild chronic antral gastritis, H. pylori positive, moderate chronic fundic gastritis, H. pylori positive, without Ca, Z line at 40 cm, tiny hiatal hernia; moderate left sided diverticula, mild internal hemorrhoids, normal mucosa to the cecum. [ *I am not certain what H. pylori regimen the patient was treated with at that time, as the records have been purged]. The patient was sent to the [facility] 11/11/2016 by his PMD, Dr. Smiley, arriving 6:17 p.m., for symptomatic anemia, at which point he was hypertensive, otherwise vital signs stable and afebrile. He was given IV Protonix, IV normal saline, calcium and insulin in the ER. The patient was not dizzy upon standing, although there were orthostatic changes ( albeit HTN). He did have some shortness of breath with exertion, otherwise there is no chest pain, LOC, or shortness of breath at rest. There was no gross hematuria or hemoptysis. The patient denies any history of bleeding disorders. The patient has required intermittent transfusions in the past. According to cardiology, in view of the recurrent anemia & epistaxis, the risk:benefit ratio no longer warranted anticoagulation therapy. The patient denies any GERD, odynophagia, dysphagia, nausea, vomiting, early satiety, abdominal pain, change in appetite, fevers, chills, jaundice, diarrhea, constipation, obstipation, or tenesmus. His weight is relatively stable. Baby aspirin was held on admission. The patient was not on outpatient PPI. The intermittent dark stools were for 3 weeks RN ENDOCRINOLOGY. *There is no true aspirin "allergy," despite what the records imply. 11/11/16: *Ferritin 13.8, B12 546, folate > 20 11/12/16: *peak troponin (to date) 0.13 11/12/16: EKG- NSR @ 62, 1st degree AVB, LAE, RBBB, post PPM. *The patient's anemia is multifactorial (CKD/epistaxis). Iron deficiency is noted. *Past history of H. pylori infection (treatment regiman unknown 05/28/07) is noted. Based on age -appropriate surveillance guidelines, he is up-to-date on screening colonoscopy. As per my discussion with Dr. Jamison, Dr. Booth has stopped the patient's anti-coagulation therapy, regarding PAF (currently in NSR) indefinitely, based on recurrent epistaxis, anemia, and history of falls. He was on outpatient aspirin 81 mg daily, but not on PPI. The family history of gastric CA (M- 78) is noted. The intermittent dark stool over the past 3 weeks RN ENDOCRINOLOGY is noted, statistically, most likely from swallowed blood post epistaxis. The mild acute on chronic elevated BUN is noted, which may be from similar reasons. Rule out simultaneous upper GI bleeding (i.e.- PUD/neoplasm/angiodysplasia/Dieulafoy lesion, etc.). There is nothing by history to suggest varices. I feel that a right-sided colonic source or small bowel etiology would be much less likely. The mild troponin bump is felt to be from demand ischemia, due to symptomatic anemia, and the patient was cleared preop for EGD by Dr. Jamison, from a cardiac perspective. 11/12/2016: *EGD to D3 with biopsies- 1. Fairly deep, clean-based, symmetrical, organizing 1 cm duodenal ulcer at the posterior aspect of the duodenal bulb, with heaped up edges, without any clot or visible vessel, left intact, without any therapeutics, as no fresh or old blood was seen. Faint contralateral duodenal erosion in the duodenal bulb. 2. Mild antral erythema, biopsied: (Specimen A- rule out H. pylori). 3. Random biopsy of gastric fundus: (Specimen B- rule out H. pylori). 4. Asymptomatic, incidental, widely patent lower esophageal ring at the Z line at 40 cm, with scant hiatal hernia pouch. *As of 11/13/2016, the patient remains hemodynamically stable (actually HTN) & afebrile, with stable O2 sat. He has received a total of 2u PRBC this admission. Hgb is at an acceptable level post-transfusion, & BUN is declining (although history of CKD). He remains in NSR. He denies any chest pain, palpitations, or shortness of breath. Troponin has peaked at 0.13 & is on the decline. He is tolerating clears po, without any nausea, vomiting, hematemesis, abdominal pain, or early satiety. There is no rectal bleeding. He denies any recurrent melena. Baby aspirin is currently on hold. PPI have been started, curently Omeprazole 40 mg po BID. There has been no recurrent epistaxis. He is ambulating with a cane. SUGGEST: *Await gastric biopsies (r/o H. pylori). *Check stool Ag H. pylori (document erradication). Check CBC daily for now. Keep Hgb > 8 with history of ASHD. Supplemental O2 as needed. *Omeprazole 40 mg po BID. No NSAIDs. Start 2g Na+ DM, renal, heart healthy diet, as patient tolerated clears po. Ambulate patient as tolerated. Keeping in mind the risk:benefit ratio, prefer not resuming ECASA 81 mg po daily for at least 1 week, while maintaining patient on PPI indefinitely, as tolerated. *As per my previous discussion with Dr. Jamison, Dr. Booth stopped A/C therapy indefinitely regarding PAF, due to recurrent anemia, epistaxis, falls, etc. Follow up with ENT for epistaxis. *Continue iron repletion. *Follow-up with renal, regarding Procrit. At present, no clinical indication for repeating colonoscopy, unless status changes, as the patient has epistaxis, duodenal ulcer, and renal failure to account for the anemia. The above was again discussed with the patient & the medical house staff, & previously with Dr. Jamison & Dr. Stout, postoperatively. I will sign off from a GI perspective, and will defer to cardiology regarding duration of hospitalization, regarding mild troponin bump, which was probably secondary to demand ischemia, in the setting of symptomatic anemia. Please call if needed. The patient was given my office number. I would advise repeating a CBC 1 week after discharge. The patient was told to make a follow-up GI appointment with me in a few weeks, but call sooner if any active bleeding recurred. Problem List: 1. Symptomatic anemia 2. Duodenal ulcer 3. Epistaxis, recurrent 4. Occult blood positive stool 5. History of Helicobacter pylori infection 6. Family history of gastric cancer Subjective Subjective: 11/12/2016: *EGD to D3 with biopsies- 1. Fairly deep, clean-based, symmetrical, organizing 1 cm duodenal ulcer at the posterior aspect of the duodenal bulb, with heaped up edges, without any clot or visible vessel, left intact, without any therapeutics, as no fresh or old blood was seen. Faint contralateral duodenal erosion in the duodenal bulb. 2. Mild antral erythema, biopsied: (Specimen A- rule out H. pylori). 3. Random biopsy of gastric fundus: (Specimen B- rule out H. pylori). 4. Asymptomatic, incidental, widely patent lower esophageal ring at the Z line at 40 cm, with scant hiatal hernia pouch. *As of 11/13/2016, the patient remains hemodynamically stable (actually HTN) & afebrile, with stable O2 sat. He has received a total of 2u PRBC this admission. Hgb is at an acceptable level post-transfusion, & BUN is declining (although history of CKD). He remains in NSR. He denies any chest pain, palpitations, or shortness of breath. Troponin has peaked at 0.13 & is on the decline. He is tolerating clears po, without any nausea, vomiting, hematemesis, abdominal pain, or early satiety. There is no rectal bleeding. He denies any recurrent melena. Baby aspirin is currently on hold. PPI have been started, curently Omeprazole 40 mg po BID. There has been no recurrent epistaxis. He is ambulating with a cane. Review of Systems: Full 14 point review of systems otherwise noncontributory, and as above. Review of Systems Constitutional: Denies: chills, diaphoresis, fever, malaise, weakness, unexplained weight loss. EENTM: Reports: epistaxis (packed & cauterized approximately 1 month RN ENDOCRINOLOGY). Denies: blurred vision, double vision, visual changes, eye pain, eye drainage, eye tearing, icterus, ear discharge, ear pain, ear redness, hearing changes, nasal congestion, nasal pain, throat pain, throat swelling, mouth pain, tooth pain. Cardiovascular: Denies: chest pain, edema, orthopena, palpitations, peripheral edema, syncope. Respiratory: Reports: short of breath- resolved. Denies: cough, hemoptysis, orthopnea, sputum production, stridor, wheezing. GI: Reports: melena RN ENDOCRINOLOGY (brown, OB+ on admission). Denies: abdominal pain, bloating, constipation, diarrhea, distention, bowel incontinence, nausea, bloody stool, changes in stool, vomiting, steatorrhea. Genitourinary: Reports: hesitation (BPH), nocturia (BPH). Denies: discharge, dysuria, frequency, hematuria, pain, urgency. Musculoskeletal: Reports: joint pain (DJD). Denies: back pain, gout, joint swelling, muscle pain, muscle stiffness, neck pain. Skin: Denies: cysts, change in skin color, change in hair/nails, dryness, erythema, jaundice, lesions, lymphangitis, lumps, moles, rash. Neurological/Psychological: Denies: anxiety, ataxia, cognitive dysfunction, confusion, depressed, dementia, emotional problems, headache, numbness, paresthesia, pre-existing deficit, petit mal seizures, tingling, tremors, tonic-clonic seizures, unable to move lower ext , unable to move upper ext, weakness. Hematologic/Endocrine: Reports: prior bleeding (hx epistaxis & intermittent dark stool- rsolved). Denies: bruising, polyuria, polydipsia. Immunologic/Allergic: Denies: splenectomy, HIV/AIDS, lymphadenopathy. All Other Systems: Reviewed and Negative. Objective Vital Signs and I&Os Vital Signs Date Time Temp Pulse Resp B/P Pulse O2 O2 Flow FiO2 Ox Delivery Rate 11/13 0823 76 178/88 11/13 0800 98.2 77 20 180/70 96 Room Air 11/13 0642 76 17811/13 0000 98.4 68 18 168/82 97 Room Air 11/12 2106 77 174/88 11/12 2106 77 174/88 11/12 1546 97.5 67 20 166/62 94 Room Air 11/12 1326 160/70 11/12 0944 166/74 Intake & Output 11/13 1600 11/13 0400 11/12 1600 11/12 0400 11/11 1600 11/11 0400 Intake Total 013 679 0583 Output Total 400 700 550 Balance -738 704 0353 -550 Intake, Blood 600 Product Intake, IV 0 0 900 Intake, Oral 250 450 400 Number 0 0 2 Bowel Movements Output, Urine 400 700 550 Patient 154 lb Weight Physical Exam: Well-developed, well-nourished, elderly male in no apparent distress. Sclera anicteric. Conjunctiva less pale after transfusion. Oropharynx clear. No oral thrush. No aphthous ulcers. There is no adenopathy, thyromegaly, JVD, or HJR. No peripheral stigmata of inflammatory bowel disease or chronic liver disease on exam. No spiders on the anterior chest wall. No gynecomastia. No CVA tenderness. Lungs: clear to A&P. PPM right CW. Heart exam: (currently in NSR)- regular rate rhythm, S1 S2, soft I/ systolic murmur. Abdominal exam: normal bowel sounds, soft belly, nontender, without guarding or rebound. No mass. No organomegaly. No fluid shift. No pulsatile mass. Repeat digital rectal exam: deferred (brown, OB+ stool on admission in ER 11/11/16). Extremities: without cyanosis or clubbing. Trace pedal edema B/L. DJD. Post right THR. No palpable cords. No rash. Distal pulses 2+ bilaterally. DTRs 2+ bilaterally. Left handed. CN II-XII intact. Alert and oriented x 3. Current Medications: Current Medications Sig/Magaly Start time Last Medication Dose Route Stop Time Status Admin Acetaminophen 650 MG Q6P PRN 11/11 2215 AC 11/12 PO 0003 Artificial Tears 2 GTT TID 11/12 2200 AC 11/13 OPH 0823 Chlorhexidine 1 GM .STK-MED ONE 11/12 1306 DC Gluconate TOP 11/12 1307 Ferrous Sulfate 325 MG BID 11/12 1000 AC 11/13 PO 0823 Finasteride 5 MG DAILY 11/12 1000 AC 11/13 PO 0823 Hydralazine HCl 25 MG Q8 11/12 0600 AC 11/13 PO 0642 Insulin Aspart 0 TIDAC 11/12 1700 AC SC Insulin Human Regular 0 Q6 11/11 2359 DC 11/12 SC 0126 Latanoprost 1 GTT AT BEDTIME 11/12 2200 AC 11/12 OPH 2107 Latanoprost 1 GTT AT BEDTIME 11/12 2200 CAN OPH Metoprolol Tartrate 25 MG BID 11/12 1000 AC 11/13 PO 0823 Omeprazole 40 MG BID 11/12 2200 AC 11/13 PO 0823 Pantoprazole Sodium 40 MG DAILY 11/12 1000 DC 11/12 IV 0945 Patient Medication 1 ED .STK-MED ONE 11/12 1356 DC Teaching ED 11/12 1357 Pravastatin Sodium 40 MG 1700 11/12 1700 AC 11/12 PO 1756 Sodium Chloride 1,000 ML .[id number] 11/11 2215 DC 11/12 IV 0642 Sodium Polystyrene 60 ML ONCE ONE 11/12 0915 DC 11/12 Sulfonate PO 11/12 0916 0945 Tramadol HCl 50 MG BID 11/12 1000 AC 11/13 PO 0824 Results Pertinent Lab Results: Laboratory Tests 11/13 11/13 11/12 0600 0015 1500 Chemistry Sodium (137 - 145 mmol/L) 141 Cancelled Potassium (3.5 - 5.1 mmol/L) 5.2 H Cancelled Chloride (98 - 107 mmol/L) 112 H Cancelled Carbon Dioxide (22 - 30 mmol/L) 20 L Cancelled Anion Gap (5 - 16) 10 Cancelled BUN (9 - 20 mg/dL) 47 H Cancelled Creatinine (0.7 - 1.2 mg/dL) 3.7 H Cancelled Estimated GFR (>60 ml/min) 16 L BUN/Creatinine Ratio (7 - 25 %) 12.7 Cancelled Hematology CBC w Diff Cancelled NO MAN DIFF REQ Cancelled WBC (4.8 - 10.8 /CUMM) Cancelled 5.2 Cancelled RBC (4.70 - 6.10 /CUMM) Cancelled 3.04 L Cancelled Hgb (14.0 - 18.0 G/DL) Cancelled 8.4 L Cancelled Hct (42 - 52 %) Cancelled 25.1 L Cancelled MCV (80.0 - 94.0 FL) Cancelled 82.7 Cancelled MCH (27.0 - 31.0 PG) Cancelled 27.6 Cancelled RDW (11.5 - 14.5 %) Cancelled 20.6 H Cancelled Plt Count (130 - 400 /CUMM) Cancelled 240 Cancelled MPV (7.4 - 10.4 FL) Cancelled 7.4 Cancelled Gran % (42.2 - 75.2 %) 59.7 Lymphocytes % (20.5 - 51.1 %) 23.0 Monocytes % (1.7 - 9.3 %) 11.7 H Eosinophils % (0 - 5 %) 5.1 H Basophils % (0.0 - 2.0 %) 0.5 Absolute Granulocytes (1.4 - 6.5 /CUMM) 3.1 Absolute Lymphocytes (1.2 - 3.4 /CUMM) 1.2 Absolute Monocytes (0.10 - 0.60 /CUMM) 0.6 Absolute Eosinophils (0.0 - 0.7 /CUMM) 0.3 Absolute Basophils (0.0 - 0.2 /CUMM) 0 PUBS MCHC (33.0 - 37.0 G/DL) Cancelled 33.3 Cancelled 11/12 11/12 11/12 1310 0600 0230 Chemistry Sodium (137 - 145 mmol/L) 142 Potassium (3.5 - 5.1 mmol/L) 5.7 H Chloride (98 - 107 mmol/L) 111 H Carbon Dioxide (22 - 30 mmol/L) 19 L Anion Gap (5 - 16) 12 BUN (9 - 20 mg/dL) 56 H Creatinine (0.7 - 1.2 mg/dL) 3.8 H Estimated GFR (>60 ml/min) 15 L BUN/Creatinine Ratio (7 - 25 %) 14.7 Troponin I (<0.11 ng/ml) 0.11 *H 0.13 *H 0.12 *H Coagulation PT Cancelled INR Cancelled Hematology CBC w Diff NO MAN DIFF REQ WBC (4.8 - 10.8 /CUMM) 5.7 RBC (4.70 - 6.10 /CUMM) 3.12 L Hgb (14.0 - 18.0 G/DL) 8.7 L Hct (42 - 52 %) 26.1 L MCV (80.0 - 94.0 FL) 83.7 MCH (27.0 - 31.0 PG) 27.7 RDW (11.5 - 14.5 %) 20.6 H Plt Count (130 - 400 /CUMM) 237 MPV (7.4 - 10.4 FL) 7.7 Gran % (42.2 - 75.2 %) 67.8 Lymphocytes % (20.5 - 51.1 %) 20.3 L Monocytes % (1.7 - 9.3 %) 8.4 Eosinophils % (0 - 5 %) 3.1 Basophils % (0.0 - 2.0 %) 0.4 Absolute Granulocytes (1.4 - 6.5 /CUMM) 3.8 Absolute Lymphocytes (1.2 - 3.4 /CUMM) 1.2 Absolute Monocytes (0.10 - 0.60 /CUMM) 0.5 Absolute Eosinophils (0.0 - 0.7 /CUMM) 0.2 Absolute Basophils (0.0 - 0.2 /CUMM) 0 PUBS MCHC (33.0 - 37.0 G/DL) 33.2 11/11 195 Coagulation PT (9.4 - 12.5 SEC) 11.8 INR (0.90 - 1.17) 1.13 Urines Urine Color (YEL,AMB,STR) YEL Urine Clarity (CLEAR) CLEAR Urine pH (5.0 - 8.0) 6.5 Ur Specific [place] (1.001 - 1.035) 1.015 Urine Protein (NEG,<30 MG/DL) 30 H Urine Ketones (NEG) NEG Urine Nitrite (NEG) NEG Urine Bilirubin (NEG) NEG Urine Urobilinogen (0.1 - 1.0 EU/dl) 0.2 Ur Leukocyte Esterase (NEG) NEG Ur Microscopic SEDIMENT EXAMINED Urine RBC (0 - 5 /HPF) RARE Urine WBC (0 - 2 /HPF) RARE Urine Hemoglobin (NEG) TRACE-INTACT H Urine Glucose (N MG/DL) NEG 11/11 184 Chemistry Sodium (137 - 145 mmol/L) 140 Potassium (3.5 - 5.1 mmol/L) 5.9 H Chloride (98 - 107 mmol/L) 107 Carbon Dioxide (22 - 30 mmol/L) 20 L Anion Gap (5 - 16) 13 BUN (9 - 20 mg/dL) 62 H Creatinine (0.7 - 1.2 mg/dL) 3.7 H Estimated GFR (>60 ml/min) 16 L BUN/Creatinine Ratio (7 - 25 %) 16.8 Glucose (65 - 99 mg/dL) 150 H Calcium (8.4 - 10.2 mg/dL) 9.6 Total Bilirubin (0.2 - 1.3 mg/dL) 0.5 AST (17 - 59 U/L) 28 ALT (21 - 72 U/L) 37 Alkaline Phosphatase (< 127 U/L) 77 Troponin I (<0.11 ng/ml) 0.10 Total Protein (6.3 - 8.2 g/dL) 6.5 Albumin (3.5 - 5.0 g/dL) 3.8 Globulin (1.9 - 4.2 gm/dL) 2.7 Albumin/Globulin Ratio (1.1 - 2.2 %) 1.4 Hematology CBC w Diff NO MAN DIFF REQ WBC (4.8 - 10.8 /CUMM) 5.9 RBC (4.70 - 6.10 /CUMM) 2.39 L Hgb (14.0 - 18.0 G/DL) 6.4 *L Hct (42 - 52 %) 19.8 *L MCV (80.0 - 94.0 FL) 83.2 MCH (27.0 - 31.0 PG) 26.7 L RDW (11.5 - 14.5 %) 24.7 H Plt Count (130 - 400 /CUMM) 286 MPV (7.4 - 10.4 FL) 7.3 L Gran % (42.2 - 75.2 %) 73.2 Lymphocytes % (20.5 - 51.1 %) 15.9 L Monocytes % (1.7 - 9.3 %) 8.9 Eosinophils % (0 - 5 %) 1.5 Basophils % (0.0 - 2.0 %) 0.5 Absolute Granulocytes (1.4 - 6.5 /CUMM) 4.4 Absolute Lymphocytes (1.2 - 3.4 /CUMM) 0.9 L Absolute Monocytes (0.10 - 0.60 /CUMM) 0.5 Absolute Eosinophils (0.0 - 0.7 /CUMM) 0.1 Absolute Basophils (0.0 - 0.2 /CUMM) 0 PUBS MCHC (33.0 - 37.0 G/DL) 32.1 L Imaging/Other Studies: 11/12/16: EKG- NSR @ 62, 1st degree AVB, LAE, RBBB, post PPM.
[2016-11-13] MEDS ORDERED: PANTOPRAZOLE SO40 M1 PO (09:53)
[2016-11-13 12:58] LABS: ABSOLUTE BASOPHIL COUNT 0 /CUMM (0.0-0.2); ABSOLUTE EOSINOPHIL COUNT 0.2 /CUMM (0.0-0.7); ABSOLUTE GRANULOCYTE CT 3.2 /CUMM (1.4-6.5); ABSOLUTE LYMPH COUNT 0.8 /CUMM (1.2-3.4); ABSOLUTE MONOCYTE COUNT 0.5 /CUMM (0.10-0.60)
[2016-11-13 13:08] LABS: BASOPHIL % 0.6 % (0.0-2.0); GRANULOCYTE % 67.9 % (42.2-75.2); HEMATOCRIT 26.6 % (42-52); MEAN CORPUSCULAR HGB 27.9 PG (27.0-31.0); MEAN CORPUSCULAR HGB CONC 33.2 G/DL (33.0-37.0); MEAN CORPUSCULAR VOLUME 83.9 FL (80.0-94.0); MEAN PLATELET VOLUME 7.5 FL (7.4-10.4); PLATELET COUNT 244 /CUMM (130-400); RBC DISTRIBUTION WIDTH 20.8 % (11.5-14.5); RED BLOOD CELL CT 3.17 /CUMM (4.70-6.10); WHITE BLOOD CELL COUNT 4.8 /CUMM (4.8-10.8)
[2016-11-13 15:30] VITALS: BP 164/80
[2016-11-14] VITALS (7 sets, daily range): BP systolic 160–210; BP diastolic 66–100
--- NOTE | 2016-11-14 00:55 | Event Note ---
Event Note Event Note: 12.20 am: Notified this patient's blood pressure was elevated 210/95. Patient also had one episode of epistaxis. 12.45 am: Repeat BP 195/95. Ordered an additional dose of Hydralazine. Went to bed side, Patient was comfortable. Epistaxis resolved. 5.00 am: pressure 184/95. Morning Dose of hydralazine given early. Will continue to monitor.
--- NOTE | 2016-11-14 07:29 | PN- Housestaff ---
SELVIN PRIETO,[facility] 11/14/16 0728: Subjective Follow-up For: Symptomatic acute on chronic anemia Hyperkalemia Diabetes Tele-Events Since Last Visit: Normal sinus rhythm, first-degree heart block, heart rate between 60 to 70s Subjective: Patient seen and examined this morning. He was sitting in his bed eating his breakfast in no acute distress. Blood pressure has been high last night systolic ranging between 192 to 210, otherwise afebrile, other vitals within normal limits. He had an episode of epistaxis last night, successfully controlled with nasal packing. No repeat episodes. Review of Systems Constitutional: Denies: chills, fever. Respiratory: Denies: cough, short of breath, sputum production. Gastrointestinal: Denies: abdominal pain, constipation, diarrhea, nausea, vomiting. Genitourinary: Denies: dysuria, frequency. Objective Last 24 Hrs of Vital Signs/I&O Vital Signs Date Time Temp Pulse Resp B/P Pulse O2 O2 Flow FiO2 Ox Delivery Rate 11/14 0501 68 184/94 11/14 0452 184/94 11/14 0248 69 192/98 11/14 0050 66 192/94 11/14 0045 66 192/94 11/14 0028 98.2 72 18 210/90 98 Room Air 11/13 2202 75 184/90 11/13 2201 75 184/90 11/13 1600 Room Air 11/13 1530 98.2 69 20 164/80 97 Room Air 11/13 1239 76 178/88 Intake & Output 11/14 1600 11/14 0800 11/14 0000 Intake Total 130 720 Output Total Balance 130 720 Intake, IV 10 Intake, Oral 120 720 Physical Exam General Appearance: Alert, Oriented X3, Cooperative, No Acute Distress Cardiovascular: Regular Rate, Normal S1, Normal S2, No Murmurs Lungs: Clear to Auscultation, Normal Air Movement Abdomen: Normal Bowel Sounds, Soft, No Tenderness Extremities: No Clubbing, No Cyanosis, No Edema Current Medications: Current Medications Sig/Magaly Start time Last Medication Dose Route Stop Time Status Admin Acetaminophen 650 MG Q6P PRN 11/11 2215 AC 11/12 PO 0003 Amlodipine Besylate 5 MG DAILY 11/14 1000 AC PO Artificial Tears 2 GTT TID 11/12 2199 AC 11/13 OPH 220 Ferrous Sulfate 325 MG BID 11/12 1000 AC 11/13 PO 2201 Finasteride 5 MG DAILY 11/12 1000 AC 11/13 PO 0823 Hydralazine HCl 25 MG ONCE ONE 11/14 0045 DC 11/14 PO 11/14 0046 0050 Hydralazine HCl 25 MG Q8 11/12 0600 AC 11/14 PO 0501 Insulin Aspart 0 TIDAC 11/12 1700 AC SC Latanoprost 1 GTT AT BEDTIME 11/12 2199 AC 11/13 OPH 220 Metoprolol Tartrate 25 MG BID 11/12 1000 AC 11/13 PO 220 Omeprazole 40 MG BID 11/12 2200 AC 11/13 PO 2202 Pravastatin Sodium 40 MG 1700 11/12 1700 AC 11/13 PO 1736 Sodium Polystyrene 60 ML ONCE ONE 11/14 0815 CAN Sulfonate PO 11/14 08 Tramadol HCl 50 MG BID 11/12 1000 AC 11/13 PO 220 Last 24 Hrs of Lab/Dung Results Last 24 Hrs of Labs/Mics: Laboratory Tests 11/14/16 0620: Anion Gap 11, Estimated GFR 16 L, BUN/Creatinine Ratio 11.4, CBC w Diff NO MAN DIFF REQ, RBC 3.48 L, MCV 84.2, MCH 27.6, RDW 20.1 H, MPV 7.5, Gran % 66.9, Lymphocytes % 18.0 L, Monocytes % 10.6 H, Eosinophils % 3.9, Basophils % 0.6, Absolute Granulocytes 3.6, Absolute Lymphocytes 1.0 L, Absolute Monocytes 0.6, Absolute Eosinophils 0.2, Absolute Basophils 0, PUBS MCHC 32.8 L 11/13/16 1125: Anion Gap 10, Estimated GFR 16 L, BUN/Creatinine Ratio 11.9, CBC w Diff NO MAN DIFF REQ, RBC 3.17 L, MCV 83.9, MCH 27.9, RDW 20.8 H, MPV 7.5, Gran % 67.9, Lymphocytes % 17.1 L, Monocytes % 10.4 H, Eosinophils % 4.0, Basophils % 0.6, Absolute Granulocytes 3.2, Absolute Lymphocytes 0.8 L, Absolute Monocytes 0.5, Absolute Eosinophils 0.2, Absolute Basophils 0, PUBS MCHC 33.2 11/13/16 0900: Stool H. pylori Ag Pending Assessment/Plan Assessment: This is 81 years old male with past medical history of paroxysmal A. fib status post pacemaker placement currently not on anticoagulation due to anemia, see Blanca stage III, type 2 diabetes, CAD status post three-vessel CABG, recent history of nosebleed presented from home with chief complaint of lightheadedness and shortness of breath found to have significant anemia on routine workup. Patient also reported 3 weeks history of on and off dark BM and recently started on aspirin. Upon presentation -His vitals on admission were T 98, HR 76, RR 18, BP 187/73, O2 sat 97% on room air. On physical exam patient is alert oriented 3 in no acute distress, HEENT PERRLA EOMI, neck supple, heart S1-S2 normal with systolic murmur, lungs clear on auscultation, abdomen soft nontender nondistended with preserved bowel sounds, no peripheral edema, no focal gross neuro deficit. Labs revealed microcytic anemia with H&H 6.4/19.8 (baseline H&H 8.8/27 in 2015), BUN/creatinine 62/37 (baseline 34/3.2 in 09/2016), troponin 0.10--> 0.12, INR 1.13 UA noted having trace hemoglobin EKG revealed normal sinus rhythm at rate of 80 with previously noted RBBB and first-degree AV block, QTC 480 He was admitted to telemetry floor and is currently being monitored for the following conditions: #Symptomatic acute on chronic anemia Patient presenting with symptoms of shortness of breath, lightheadedness and dizziness, and possibly black tarry stool and with hemoglobin levels value of 6.1 and hematocrit of 19.8. Possible etiology of patient's anemia includes recurrent history of epistaxis, However, the patient hasn't had an episode since about 1 and 1/2 weeks ago. Patient complains of blood tarry stool in the setting of aspirin use is concerning for GI etiology such as an ulcer. He received 2 units of packed red blood cells H&H posttransfusion 8.7 and 26.1. Patient status post endoscopy yesterday revealing a duodenal ulcer, started on regular diet, patient tolerating well. Continue with GI prophylaxis with Protonix IV 40 mg daily. Patient to follow-up with gastroenterology upon discharge. He is to avoid NSAIDs, no aspirin for a week as per GI recommendation, further plans of anticoagulation to be discussed with bonderite operator upon discharge in a week. #Hyperkalemia .Most likely secondary to patient's chronic kidney disease. Patient is not on any medication that creases risk of hyperkalemia. No acute EKG changes noted. Kayexalate was administered we'll monitor repeat labs for potassium levels #Acute on chronic kidney injury Patient creatinine baseline averages around 3.3. BUN/creatinine ratio does not depict a prerenal etiology. will monitor repeat labs and in the meanwhile avoid any nephrotoxic drugs. #History of CAD Likely demand ischemia, troponins 0.12 and 0.13, without any acute EKG changes, will Trend serial troponins and EKG to rule out ACS in the setting of symptomatic anemia. Aspirin on hold for now, will consult GI to be started. #History of diabetes. We'll start patient on insulin sliding scale with fingersticks TIDAC/hs along with Levemir, diabetic diet, HbA1c pending # DVT prophylaxis with Alps Patient is DNR/DNI. Problem List: 1. Epistaxis, recurrent 2. [id number] kidney injury 3. Duodenal ulcer 4. History of Helicobacter pylori infection Pain Ratin Pain Location: None Pain Goal: Remain pain free Pain Plan: Mild pain pathway Tomorrow's Labs & Rationales: None patient to be discharged Discharge Plan Discharge Disposition: home Stable for Discharge? Yes Anticipated Discharge (Day): today If Discharged Today/In 24 Hrs: DC summary done, CMR done JOSE MIGUEL CARLISLE MD 11/14/162128: Attending MD Review Statement Attending Statement Attending MD Statement: examined this patient, discuss w/resident/PA/BACTERIOLOGIST MEDICAL, agreed w/resident/PA/BACTERIOLOGIST MEDICAL, reviewed EMR data (avail), discussed with nursing, discussed with case mgmt, amended to note Attending Assessment/Plan: The patient was seen and discussed with house staff. Agree with the plan of care as outlined. OK to discharge today to home with follow-up with Dr. Booth, GI, and PCP.
[2016-11-14 08:30] LABS: ABSOLUTE BASOPHIL COUNT 0 /CUMM (0.0-0.2); ABSOLUTE EOSINOPHIL COUNT 0.2 /CUMM (0.0-0.7); ABSOLUTE GRANULOCYTE CT 3.6 /CUMM (1.4-6.5); ABSOLUTE MONOCYTE COUNT 0.6 /CUMM (0.10-0.60); BASOPHIL % 0.6 % (0.0-2.0); EOSINOPHIL % 3.9 % (0-5); GRANULOCYTE % 66.9 % (42.2-75.2); HEMATOCRIT 29.3 % (42-52); MEAN CORPUSCULAR HGB 27.6 PG (27.0-31.0); MEAN CORPUSCULAR HGB CONC 32.8 G/DL (33.0-37.0); MEAN CORPUSCULAR VOLUME 84.2 FL (80.0-94.0); MEAN PLATELET VOLUME 7.5 FL (7.4-10.4); PLATELET COUNT 275 /CUMM (130-400); RBC DISTRIBUTION WIDTH 20.1 % (11.5-14.5); RED BLOOD CELL CT 3.48 /CUMM (4.70-6.10); WHITE BLOOD CELL COUNT 5.4 /CUMM (4.8-10.8)
[2016-11-14] MEDS ORDERED: AMLODIPINE BESYL5 M1 PO (10:13)
[2016-11-14] MEDS ORDERED: PANTOPRAZOLE SO40 M1 PO (14:00)
--- NOTE | 2016-11-14 15:37 | History & Physical ---
General Information and HPI Source of Information: patient, old records Exam Limitations: no limitations Allergies/Medications Allergies: Coded Allergies: No Known Allergies (11/14/16) Home Med list Amlodipine Besylate 5 MG TABLET 1 TAB PO DAILY blood pressure Cyclosporine (Restasis) 0.05 % DROPERETTE 1 GTT OPH BID EYE (Reported) Finasteride 5 MG TABLET 1 TAB PO DAILY PROSTATE (Reported) Furosemide 20 MG TABLET 1 TAB PO DAILY edema (Reported) Glimepiride 4 MG TABLET 0.5 TAB PO DAILY DIABETES (Reported) Hydralazine HCl 25 MG TABLET 1 TAB PO TID HEART (Reported) Metoprolol Tartrate 25 MG TABLET 1 TAB PO BID HEART (Reported) Pantoprazole Sodium 40 MG TABLET.DR 1 TAB PO BID duodenal ulcer Pravastatin Sodium 40 MG TABLET 1 TAB PO QPM CHOLESTEROL (Reported) Sennosides (Senna) 8.6 MG TABLET 2 TAB PO DAILY PRN Constipation Sodium Bicarbonate 650 MG TABLET 1 TAB PO BID SUPPLEMENT (Reported) Sodium Polystyrene Sulfon/Sorb (Sps 15 Gm/60 Ml Suspension) 15 GRAM-20 GRAM/60 ML ORAL.SUSP 60 ML PO MoTh Hyperkalemia Please take this medication twice a week. Once on Friday and Once on . Tramadol HCl 50 MG TABLET 1 TAB PO BID PAIN (Reported) Travoprost (Travatan Z) 0.004 % DROPS 1 GTT OPH QPM EYE (Reported) Past History Travel History Traveled to [place] past 21 day No Medical History Blood Transfusion Hx: Yes Neurological: NONE EENT: epistaxis Cardiovascular: CAD, CHF, hypertension, hyperlipidemia, R CHEST PACEMAKER PAF Respiratory: NONE Gastrointestinal: diverticulosis coli 05/28/07: + H. 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 Gastric cancer FATHER (Liver Ca (? primary vs. met)). , Age 86; Cause: Cancer. Relation not specified for: gastric cancer Psychosocial History Where do you live? Home Who Do You Live With? self Services at Home: None Primary Language: Indonesian Smoking Status: Never Smoked ETOH Use: denies use Illicit Drug Use: denies illicit drug use Living Will? no Power of Senior Animator/HCP? no Other Social History: Single. Lives alone. Patient's , Kalani- 67 in 2008 from gastric Ca. No cigarettes, drugs, or EtOH. 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 Functions independently. Uses cane. 2 children- [employer] (1 dtr in [place], [place] & 1 son in [place]). Functional Ability ADLs Independent: dressing, eating, toileting, bathing. Ambulation: cane IADLs Independent: shopping, housework, finances, food prep, telephone. Needs Assist: transportation, medication admin. 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 Lungs are clear. 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
--- NOTE | 2016-11-14 15:37 | Discharge Summary ---
Visit Information Visit Dates Admission Date: 11/11/16 Discharge Date: 11/14/16 Hospital Course Course Attending Physician: JOSE MIGUEL CARLISLE MD Primary Care Physician: MARK PRIETO,CECIL Nguyễn Hospital Course: This is 81 years old male with past medical history of paroxysmal A. fib status post pacemaker placement currently not on anticoagulation due to anemia, see Blanca stage III, type 2 diabetes, CAD status post three-vessel CABG, recent history of nosebleed presented from home with chief complaint of lightheadedness and shortness of breath found to have significant anemia on routine workup. Patient also reported 3 weeks history of on and off dark BM and recently started on aspirin. Upon presentation -His vitals on admission were T 98, HR 76, RR 18, BP 187/73, O2 sat 97% on room air. On physical exam patient is alert oriented 3 in no acute distress, HEENT PERRLA EOMI, neck supple, heart S1-S2 normal with systolic murmur, lungs clear on auscultation, abdomen soft nontender nondistended with preserved bowel sounds, no peripheral edema, no focal gross neuro deficit. Labs revealed microcytic anemia with H&H 6.4/19.8 (baseline H&H 8.8/27 in 2015), BUN/creatinine 62/37 (baseline 34/3.2 in 09/2016), troponin 0.10--> 0.12, INR 1.13 UA noted having trace hemoglobin EKG revealed normal sinus rhythm at rate of 80 with previously noted RBBB and first-degree AV block, QTC 480 He was admitted to telemetry floor and monitored for the following conditions: #Symptomatic acute on chronic anemia Patient presenting with symptoms of shortness of breath, lightheadedness and dizziness, and possibly black tarry stool and with hemoglobin levels value of 6.1 and hematocrit of 19.8. Possible etiology of patient's anemia includes recurrent history of epistaxis, However, since the patient had not had any recent episode, in setting of tarry stool in the setting of aspirin use was concerning for GI etiology such as an ulcer. He received 2 units of packed red blood cells H&H posttransfusion 8.7 and 26.1. An endoscopy was done which revealed a duodenal ulcer, post procedure started on clear liquid>> regular diet , patient tolerated well. Started on GI prophylaxis with Protonix IV 40 mg daily. Aspirin on hold, Patient to follow-up with gastroenterology upon discharge. He is to avoid NSAIDs, no aspirin for a week as per GI recommendation, further plans of anticoagulation to be discussed with professor of theater upon discharge in a week. #Hyperkalemia Most likely secondary to patient's chronic kidney disease. Patient is not on any medication that increases risk of hyperkalemia. No acute EKG changes noted. Kayexalate was administered, repeat K stable. #History of hypertension: Patient was continued on metoprolol and hydralazine, amlodipine 5mg was added as blood pressure on higher side. He is to follow up with cardiology in one week regarding blood pressure managment. #History of CAD Likely demand ischemia, troponins 0.12 and 0.13, without any acute EKG changes Aspirin on hold for now, patient to follow up with cardiolgist for anticoagulation plans. #History of diabetes. We'll start patient on insulin sliding scale with fingersticks TIDAC/hs along with Levemir, diabetic diet, HbA1c pending # DVT prophylaxis with Alps Patient is DNR/DNI. Allergies: Coded Allergies: No Known Allergies (11/14/16) Significant Procedures: ENDOSCOPY: 1. Fairly deep, clean-based, symmetrical, organizing 1 cm duodenal ulcer at the posterior aspect of the duodenal bulb, with heaped up edges, without any clot or visible vessel, left intact, without any therapeutics, as no fresh or old blood was seen. Faint contralateral duodenal erosion in the duodenal bulb. 2. Mild antral erythema, biopsied: (Specimen A- rule out H. pylori). 3. Random biopsy of gastric fundus: (Specimen B- rule out H. pylori). 4. Asymptomatic, incidental, widely patent lower esophageal ring at the Z line at 40 cm, with scant hiatal hernia pouch. Disposition Summary Disposition Principal Diagnosis: Acute on chronic anemia secondary to duodenal ulcer in setting of aspirin use Additional Diagnosis: CAD Hyperkalemia Discharge Disposition: home or self care Discharge Instructions General Discharge Information Code Status: Full Code Patient's Diet: heart healthy Patient's Activity: As tolerated Follow-Up Instructions/Appts: patient advised to follow up with primary care physican, professor of theater and customer experience leader in one week. Patient aware that he has been started on Amlodipine as blood pressue was running high, he is to follow up with PCP to adjust medication as per blood pressure goals. Medications at Discharge Discharge Medications: Stop taking the following medications: Ferrous Sulfate (IRON) 325 MG (65 MG IRON) TABLET ORAL TWICE DAILY Days = 7 Aspirin (Ecotrin*) 81 MG TABLET.DR ORAL DAILY Continue taking these medications: Pravastatin Sodium (Pravastatin Sodium) 40 MG TABLET 1 Tablet ORAL Every night Qty = 90 Comments: Last Taken: 11/13/16 Time: 5:30 PM Metoprolol Tartrate (Metoprolol Tartrate) 25 MG TABLET 1 Tablet ORAL TWICE DAILY Qty = 60 Comments: Last Taken: 11/14/16 Time: 9:00 AM Glimepiride (Glimepiride) 4 MG TABLET 0.5 Tablet ORAL DAILY Qty = 90 Comments: NOT GIVEN IN HOSPITAL Finasteride (Finasteride) 5 MG TABLET 1 Tablet ORAL DAILY Qty = 90 Comments: Last Taken: 11/14/16 Time: 9:00 AM Sodium Bicarbonate (Sodium Bicarbonate) 650 MG TABLET 1 Tablet ORAL TWICE DAILY Qty = 60 Comments: Last Taken: 11/12/16 Time: 9:45 AM Tramadol HCl (Tramadol HCl) 50 MG TABLET 1 Tablet ORAL TWICE DAILY Qty = 60 Comments: Last Taken: 11/14/16 Time: 9:00 AM Hydralazine HCl (Hydralazine HCl) 25 MG TABLET 1 Tablet ORAL THREE TIMES DAILY Qty = 90 Comments: Last Taken: 11/14/16 Time: 1:45 PM Cyclosporine (Restasis) 0.05 % DROPERETTE 1 Drop In the eye TWICE DAILY Comments: NOT GIVEN IN HOSPITAL Travoprost (Travatan Z) 0.004 % DROPS 1 Drop In the eye Every night Comments: Last Taken: 11/13/16 Time: 10 PM Furosemide (Furosemide) 20 MG TABLET 1 Tablet ORAL DAILY Qty = 30 Comments: NOT GIVEN IN HOSPITAL Sennosides (Senna) 8.6 MG TABLET 2 Tablet ORAL DAILY as needed for Constipation Qty = 30 Comments: NOT GIVEN IN HOSPITAL Sodium Polystyrene Sulfon/Sorb (Sps 15 Gm/60 Ml Suspension) 15 GRAM-20 GRAM/60 ML ORAL.SUSP 60 Milliliters ORAL MoTh Qty = 8 Instructions: Please take this medication twice a week. Once on Friday and Once on . Comments: Last Taken: 08/27/16 Time: 4:00 PM Start taking the following new medications: Pantoprazole Sodium (Pantoprazole Sodium) 40 MG TABLET.DR 1 Tablet ORAL TWICE DAILY Days = 30 No Refills Comments: Last Taken: 11/14/16 Time: 9:00 AM Amlodipine Besylate (Amlodipine Besylate) 5 MG TABLET 1 Tablet ORAL DAILY Days = 30 No Refills Comments: Last Taken: 11/14/16 Time: 10:30 AM Copies To: MARCUS PRIETO,INO Whitlock; JOSE MIGUEL CARLISLE MD; JAZMIN PRIETO,MEREDITH Attending MD Review Statement Documenting Attending: JOSE MIGUEL CARLISLE MD Other Findings: The patient was seen and discussed with house staff. Agree with the plan of care upon discharge.
== END 2016-11-14 15:40 | DRG 812 ==
LOC: ENRESERVDT → ENRESERVTM → ERH 18:17 → 1NO 20:58 → ENPENDDIS 20:58 → ERHI 20:58 → 1NO 22:41 → 2NA 22:41 → 1NO 11-12 04:17
PROVIDERS: Emergency Medicine; Internal Medicine; Physician Assistant; Student in an Organized Health Care Education/Training Program; ADMIT Student in an Organized Health Care Education/Training Program
PROC: 0DB68ZX Excision of Stomach, Via Natural or Artificial Opening Endoscopic, Diagnostic (ICD-10-PCS; principal; 2016-11-12)
PROC: 30233N1 Transfusion of Nonautologous Red Blood Cells into Peripheral Vein, Percutaneous Approach (ICD-10-PCS; 2016-11-12)
DX: D62 Acute posthemorrhagic anemia (principal); N18.4 Chronic kidney disease, stage 4 (severe); I24.8 Other forms of acute ischemic heart disease; N17.9 Acute kidney failure, unspecified; K26.9 Duodenal ulcer, unspecified as acute or chronic, without hemorrhage or perforation; E87.5 Hyperkalemia; I13.10 Hypertensive heart and chronic kidney disease without heart failure, with stage 1 through stage 4 chronic kidney disease, or unspecified chronic kidney disease; I48.0 Paroxysmal atrial fibrillation; R04.0 Epistaxis; I25.10 Atherosclerotic heart disease of native coronary artery without angina pectoris; Z95.1 Presence of aortocoronary bypass graft; Z95.0 Presence of cardiac pacemaker; E78.5 Hyperlipidemia, unspecified; E11.9 Type 2 diabetes mellitus without complications; Z79.4 Long term (current) use of insulin; Z66 Do not resuscitate
CPT/HCPCS: 1NSP; 2NASP; 87338; 36415; 81001; 82436; 86920; 88305; 88312; 93005; 93010; 96374; 96375; 99291; J0610; J1815; P9016

== ENCOUNTER → 2017-04-23 | Day surgery (SDC) | payer OTHER ==
[~2017-04-23] VITALS: Ht 170.2 cm; Wt 69.9 kg
[~2017-04-23] MED LIST changes: +AMLODIPINE BESYL5 M1 PO; +ASPIRIN EC81 M1 PO; +PANTOPRAZOLE SO40 M1 PO
--- NOTE | 2017-04-23 09:18 | Operative Report ---
Operative/Inv Procedure Report Surgery Date: 04/23/17 Name of Procedure: Cataract extraction lens implantation left eye Pre-Operative Diagnosis: Age-related cataract left eye 20/200 vision Post-Operative Diagnosis: Same Estimated Blood Loss: none Surgeon/Commercial Real Estate Attorney: MINERVA PRIETO,AMANDA Bobo Anesthesia: local monitored anesthesi Complications: None Operative/Procedure Note Note: The patient was brought to the operating room standard monitoring equipment was attached the patient was prepped and draped in the usual fashion for intraocular surgery. A lid speculum was placed to retract the lids. The case was begun by making 2 partial-thickness corneal relaxing incisions at 5. A temporal incision with a 2.4 mm keratome. The eye was stabilized with a Morgan ring during this incision. 1 mL of non-preserved lidocaine was introduced into the anterior chamber to provide anesthesia. The anterior chamber was then filled and deepened with viscoelastic. A curvilinear capsulorrhexis was achieved using a 30-gauge needle and is a cystotome and capsulorrhexis was finished using a Utrata forceps. A second or paracentesis incision was made temporally with a 1 mm MVR blade. The lens was then hydrodissected with balanced salt solution and found to be rotatable. The lens was emulsified using phacoemulsification and a modified four-quadrant cracking technique. At the conclusion of the lens removal a small very round circular hole in the posterior capsule was noted. Before the phacoemulsification unit was removed from the eye anterior chamber was filled with viscoelastic to suppress the foward movement of any vitreous gel. The residual cortical material was removed using automated irrigation and aspiration very carefully as to not disturb the posterior opening. Similarly when the aspiration unit was removed from the eye and the anterior chamber was filled with viscoelastic to again prevent any forward movement of the gel. The capsular bag was deepened with viscoelastic. The lens a Technis 1 21.0 Diopter placed into the bag under direct visualization. Viscoelastic was then removed from the eye carefully by automated irrigation and aspiration. The eye was pressurized to a normal tone. A small amount of Miostat was introduced into the anterior chamber to reduce the size of the pupil and to make sure that it came down in a rounded fashion which it did. The wounds were sealed by hydrating the stroma adjacent to them and the eye was left at a proper tone after the wounds were checked and found not to be leaking. The lid speculum was removed from the orbit. Antibiotic and steroid drops were placed on the eye and then the eye was shielded. Monitoring equipment was removed from the patient and the patient was removed from the operative suite to the holding area. The patient tolerated the procedure well and will be seen in the office tomorrow.
== END ==
LOC: STS 01:46
DX: H25.9 Unspecified age-related cataract (principal); I10 Essential (primary) hypertension; E78.00 Pure hypercholesterolemia, unspecified; Z95.0 Presence of cardiac pacemaker; N28.9 Disorder of kidney and ureter, unspecified
CPT/HCPCS: J2250; V2632